=== PATIENT | female | born 1990 | race African-American/Black ===

== ENCOUNTER 2020-08-20 08:49 | Outpatient (REF) | payer OTHER, SELFPAY ==
[2020-08-20 09:39] LABS: MANUAL DIFF FLAG NO
[2020-08-20 09:43] LABS: Basophils Percent Auto 0.4 % (0-2); Eosinophils Absolute Auto 0.1 X10*3/uL (0.0-0.4); Eosinophils Percent Auto 1.2 % (0-4); Hematocrit 36.3 % (37-47); Hemoglobin 11.9 g/dl (12.0-16.0); Imm Gran Abs Auto 0.02 X10*3/uL (0.00-0.03); Imm Gran Pct Auto 0.3 % (0.0-0.4); Lymphocytes Absolute Auto 2.9 X10*3/uL (1.2-4.9); Lymphocytes Percent Auto 39.2 % (20-40); Mean Corpuscular HGB Conc 32.8 g/dl (31.0-35.0); Mean Corpuscular Hemoglobin 29.9 pg (27.0-33.0); Mean Corpuscular Volume 91.2 fL (80-98); Mean Platelet Volume 9.3 fL (9.4-12.3); Monocytes Absolute Auto 0.4 X10*3/uL (0.1-1.2); Monocytes Percent Auto 5.6 % (2-11); Neutrophils Absolute Auto 3.9 X10*3/uL (2.0-8.3); Neutrophils Percent Auto 53.3 % (45-73); Platelet Count 336 X10*3/uL (160-400); Red Blood Count 3.98 X10*6/uL (4.20-5.50); Red Cell Distribution Width 13.2 % (11.0-16.0); White Blood Count 7.3 X10*3/uL (4.8-10.8)
[2020-08-20 11:21] LABS: TSH reflex Free T4 0.67 mIU/mL (0.32-4.0)
[2020-08-20 11:33] LABS: Alanine Aminotransferase 15 U/L (0-31); Albumin Level 4.1 g/dL (3.5-5.0); Alkaline Phosphatase 76 U/L (39-117); Anion Gap 11 (12-20); Aspartate Amino Transferase 19 U/L (5-31); Bilirubin Total 0.2 mg/dL (0.0-1.0); Blood Urea Nitrogen 17 mg/dL (9-16); Calcium 9.3 mg/dL (8.4-10.2); Carbon Dioxide 26 mmol/L (22-29); Chloride 107 mmol/L (96-108); Cholesterol 172 mg/dL; Estimated Glomerular Filt Rate 54; Glucose Random 97 mg/dL (60-115); HDL Cholesterol 47 mg/dL; LDL Cholesterol Calculated 113 mg/dl; Potassium 4.4 mmol/l (3.3-5.1); Sodium 140 mmol/L (135-145); Total Protein 7.4 g/dL (6.5-8.0); Triglycerides 61 mg/dL
[2020-08-22 15:20] LABS: Anti Nuclear Antibody Screen NEGATIVE (NEGATIVE)
== END 2020-08-20 08:50 | disposition home or self-care (01) ==
LOC: HO.10HDL 08:49
PROVIDERS: PCP Internal Medicine; Visit Provider Internal Medicine
DX: Z76.89 Persons encountering health services in other specified circumstances (principal)
CPT/HCPCS: 36415; 80053; 80061; 84443; 85025; 86038; 86039

== ENCOUNTER 2020-10-19 08:33 | Outpatient (REF) | payer OTHER, SELFPAY ==
[2020-10-19 09:18] LABS: COVID-19 Test Negative (Negative)
== END 2020-10-19 08:34 | disposition home or self-care (01) ==
LOC: HO.EMPCOV 08:33
PROVIDERS: Visit Provider Internal Medicine
DX: Z20.828 Contact with and (suspected) exposure to other viral communicable diseases (principal)
CPT/HCPCS: 87635; C9803

== ENCOUNTER 2020-10-22 14:55 | Outpatient (REF) | payer OTHER, SELFPAY ==
--- NOTE | 2020-10-22 | MR_ITS ---
EXAMINATION: MR BRAIN WITHOUT CONTRAST CLINICAL INFORMATION: Papilledema. COMPARISON: None. TECHNIQUE: Multiplanar, multisequence imaging of the brain was performed without contrast. FINDINGS: No diffusion abnormalities are identified to suggest an acute infarct. The ventricles are normal in size. No mass effect or midline shift is seen. No brain parenchymal signal abnormality is noted. No extra-axial fluid collections are seen. The brainstem and cerebellum are normal. There is protrusion of the optic nerve papilla at the level of the optic discs bilaterally into the vitreous space of the globes. The gradient refocused acquisition demonstrates no pathologic magnetic susceptibility artifact to indicate underlying acute or chronic blood products. The craniovertebral junction, marrow signal, and midline structures are normal. The major intracranial flow voids at the level of the [place] are preserved. The dural venous sinus flow voids are maintained. The mastoid air cells and paranasal sinuses are well aerated. MR/MR head/brain wo con IMPRESSION: Protrusion of the optic nerve heads into the vitreous space of the globes bilaterally, consistent with papilledema. No acute intracranial process otherwise.
== END 2020-10-22 14:56 | disposition home or self-care (01) ==
LOC: HO.MRI 14:55
PROVIDERS: PCP Internal Medicine; Visit Provider Psychiatry & Neurology Neurology
DX: H47.10 Unspecified papilledema (principal)
CPT/HCPCS: 70551

== ENCOUNTER 2020-11-10 08:20 | Outpatient (REF) | payer OTHER, SELFPAY ==
[2020-11-10 10:13] LABS: Prothrombin Time 11.9 SEC (10.8-13.0)
== END 2020-11-10 08:21 | disposition home or self-care (01) ==
LOC: HO.10HDL 08:20
PROVIDERS: Visit Provider Psychiatry & Neurology Neurology
DX: H47.10 Unspecified papilledema (principal)
CPT/HCPCS: 36415; 85610

== ENCOUNTER 2020-11-17 07:27 | Outpatient (REF) | payer OTHER, SELFPAY ==
[2020-11-17] VITALS (9 sets, daily range): BP systolic 118–156; BP diastolic 71–93; PULSE 64–87; RESP 16–20; TEMP 35.9–36.2; O2SAT 97–99; BMI 44.1
--- NOTE | 2020-11-17 | FL_ITS ---
EXAMINATION: XR LUMBAR PUNCTURE CLINICAL INFORMATION: Doppler edema, pseudotumor cerebri. COMPARISON: None TECHNIQUE: Following explaining fluoroscopy-guided lumbar puncture procedure, benefits and risk, a written consent was obtained. Patient was placed prone on fluoroscopy table and low back area was cleaned and draped in usual sterile manner. 1% lidocaine was injected puncture site. A 20-gauge 6 inch long needle was then inserted the left left para midline approach intrathecally at the L4-L5 disc level. After observing CSF return, patient was quickly placed in left lateral the courtesy of an opening CSF pressure was obtained. Subsequently 8 mL of CSF fluid was collected in 4 test tubes and sent to lab. The site is a introducer needle removed. Complete hemostasis achieved at puncture site. Sterile dressing applied postprocedure. Patient tolerated procedure well. FINDINGS: On several images obtained of lumbar spine is maintained lumbar lordosis. The vertebral heights, alignment and disc heights are normal. No visible acute fracture bony abnormality seen. Opening CSF pressure measured 43 cm/H2O. Approximately 8 mL of clear CSF fluid collected in 4 test tubes and sent to lab as per requesting physician's orders. FLUOROSCOPY TIME: 0.5 minutes DOSE AREA PRODUCT: 13.897 uGy-m2 (microgray-meter squared) IMAGES: 4 FL/FL guided lumbar puncture LP IMPRESSION: Successful fluoroscopy-guided lumbar puncture performed with opening CSF pressure of 44 cm/water.
[2020-11-17 13:48] LABS: CSF Appearance Clear, Colorless; Glucose CSF 64 mg/dL; Total Protein CSF 40.2 mg/dL (15-45)
[2020-11-17 13:49] LABS: CSF Tube # 1
[2020-11-17 14:25] LABS: Appearance CSF CLEAR; CSF Tube # 4; Color CSF COLORLESS; Red Blood Cell CSF 0 MM*3; White Blood Cell CSF 1 MM*3
[2020-11-17 14:26] LABS: CSF Monos 29 %; Lymphocytes CSF 71 %
[2020-11-20 08:56] LABS: Oligoclonal Serum Yes
[2020-11-25 01:11] LABS: Albumin 3.7 g/dL (3.5-5.2); Albumin, CSF 22.9 mg/dL (8.0-42.0); IgG 1580 mg/dL (600-1640); IgG Synthesis Rate -5.7 mg/24 h (-9.9-3.3); IgG, CSF 4.4 mg/dL (0.8-7.7)
== END 2020-11-17 07:28 | disposition home or self-care (01) ==
LOC: HO.MS 07:27
PROVIDERS: PCP Internal Medicine; Visit Provider Psychiatry & Neurology Neurology
PROC: 009U3ZZ Drainage of Spinal Canal, Percutaneous Approach (ICD-10-PCS; CPT 62270; principal; 2020-11-17 08:00)
DX: G93.2 Benign intracranial hypertension (principal); H47.10 Unspecified papilledema; E66.9 Obesity, unspecified
CPT/HCPCS: 62328; 82042; 82945; 83916; 84157; 87015; 87070; 87205; 89051

== ENCOUNTER 2021-01-31 07:52 | Outpatient (REF) | payer OTHER, SELFPAY ==
[2021-01-31 08:37] LABS: COVID-19 Test Negative (Negative); IDNOW Serial# 55D5AD1C
== END 2021-01-31 07:53 | disposition home or self-care (01) ==
LOC: HO.EMPCOV 07:52
PROVIDERS: Visit Provider Internal Medicine
DX: Z20.822 Contact with and (suspected) exposure to COVID-19 (principal)
CPT/HCPCS: 36415; 87635; C9803

== ENCOUNTER → 2021-02-08 12:39 | Outpatient (BNVA) | payer OTHER, SELFPAY | PROVIDERS: PCP Internal Medicine; Visit Provider Internal Medicine | DX: Z13.89 Encounter for screening for other disorder (principal) | CPT/HCPCS: 99203 ==

== ENCOUNTER → 2021-02-11 08:48 | Outpatient (BNVA) | payer OTHER, SELFPAY | PROVIDERS: PCP Internal Medicine; Visit Provider Physician Assistant Medical | DX: Z13.89 Encounter for screening for other disorder (principal) | CPT/HCPCS: 99213 ==

== ENCOUNTER 2021-03-02 13:43 | Outpatient (REF) | payer OTHER, SELFPAY | END 2021-03-02 13:44 | disposition home or self-care (01) | LOC: HO.LNP 13:43 | PROVIDERS: Visit Provider Physician Assistant | DX: Z20.822 Contact with and (suspected) exposure to COVID-19 (principal) | CPT/HCPCS: U0003; U0005 ==

== ENCOUNTER 2024-04-08 12:53 | Outpatient (AMB) | payer OTHER, SELFPAY ==
--- NOTE | 2024-04-08 12:56 | A.OFFPC_ITS ---
Vital Signs 04/08/24 12:57 Height 5 ft 8 in Weight 313 lb BMI 47.6 BP 140/110 H Blood Pressure Location Rt brachial Position Sitting Pulse 82 Pulse Source Pulse Oximeter Pulse Oximetry (%) 98 Oxygen Delivery Method Room Air Intake Visit Reasons: High BP Allergies No Known Allergies [No Known Allergies*] Allergy (Verified 04/08/24 12:57) Medication List - Last Reconciled 04/08/24 by Gregg Keller MD No Known Home Meds Tobacco use date assessed: 04/08/24 Dental Screening Dental Screen Date: 04/08/24 Did you have a dental visit in the last 12 months?: Yes Did you have a dental problem in the last 6 months where you did not have access to dental care?: No Was dental information given to patient?: Patient has dentist HPI High BP HPI Details Patient is a 34-year-old female came today establish care visit Patient says that her blood pressure has been running high She was in urgent care few days ago and it was 184 systolic Today it is 140/110 Patient has never taken any medication I see that she was seen in 2020 and her blood pressure was 138/72 at that time I am starting her on hydrochlorothiazide 25 mg once a day Patient is also complaining of feeling fatigue and tired all day She says that she sleeps 8 hours a day and still wake up very tired At times with headache Her BMI is 47.6 patient is morbidly obese I have ordered sleep study for the patient Lab order placed to be done fasting She also have rash on both elbows for that she is using hydrocortisone cream which is helping her. She is to return in 3 weeks for physical exam [facility] Medical History Elevated IOP Surgical History No pertinent past surgical history Social History Housing: House Alcohol intake: current Alcohol intake frequency: a few times a month Patient Tobacco Use Status: Former Tobacco user e-Cigarette/Vaping Use: Never Used Cognitive needs: No Hearing needs: No Vision needs: No Questionnaire PHQ-9 Over the last 2 weeks, how often have you been bothered by any of the following problems? 1. Little interest or pleasure in doing things: several days 2. Feeling down, depressed, or hopeless: several days 3. Trouble falling or staying asleep, or sleeping too much: more than half the days 4. Feeling tired or having little energy: nearly every day 5. Poor appetite or overeating: more than half the days 6. Feeling bad about yourself - or that you are a failure or have let yourself or your family down: not at all 7. Trouble concentrating on things, such as reading the newspaper or watching television: not at all 8. Moving or speaking so slowly that other people could have noticed. Or the opposite - being so fidgety or restless that you have been moving around a lot more than usual: not at all 9. Thoughts that you would be better off or of hurting yourself in some way: not at all Total score: 9 Depression Screening Interpretation: Negative Depression Screening Done: Yes 00393 - PHQ-9 Billing: Yes Source: Developed by Drs. Nima Alexander, Esther Yanes, Kulwant Avendano and colleagues, with an educational shayy from [employer]. Thrive Questionnaire Date Thrive assessed: 04/08/24 I am a: Patient What is your living situation today?: I have a steady place to live Within the past 12 months, did the food you bought not last and you didn't have the money to get more?: Never true Within the past 12 months, did you worry whether your food would run out before you got money to buy more?: Never true Do you have trouble paying for medicines?: No Do you have trouble getting transportation to medical appointments?: No Do you have trouble paying your heating and electricity bill?: No Do you have trouble taking care of your child, family member or friend?: No Do you have trouble with day-to-day activities such as bathing, preparing meals, shopping, managing finances, etc.?: No Are you currently unemployed and looking for a job?: No Are you interested in more education?: No Please select the resources that you would like help with: None Currently or been in a relationship where the following occur: no concerns reported THRIVE Score: 0 AUDIT C Alcohol Use Questionnaire (AUDIT-C) 1. How often do you have a drink containing alcohol?: 2-3 times a week 2. How many drinks containing alcohol do you have on a typical day when you are drinking?: 1 or 2 3. How often do you have six or more drinks on one occasion?: Never Total Score: 3 Score Reviewed/Action Taken: No ELPIDIO-7 AMB Questionnaire ELPIDIO-7 Date ELPIDIO - 7 assessed: 04/08/24 Feeling nervous, anxious, or on edge: 2 = More than half the days Not being able to stop or control worryin = Not at all Worrying too much about different things: 0 = Not at all Trouble relaxin = Not at all Being so restless that it is hard to sit still: 1 = Several days Becoming easily annoyed or irritable: 3 = Nearly every day Feeling afraid as if something awful might happen: 0 = Not at all Total ELPIDIO-7 score (0-4 normal; 5-9 mild; 10-14 moderate; 15-21 severe): 6 Source: Developed by Drs. Nima Alexander, Esther Yanes, Kulwant Avendano and colleagues, with an educational shayy from [employer]. ELPIDIO-7 Assessment Billing ELPIDIO-7 Assessment Tool: ELPIDIO-7 Assessment 72875 Review of Systems Const Denies chills and Denies fever(s) ENT Denies epistaxis and Denies nasal discharge Card Denies chest pain Resp Denies chest congestion, Denies cough and Denies hemoptysis GI Denies diarrhea and Denies nausea Skin/Breast Denies rash Neuro Reports no additional complaints Psych Reports no additional complaints Endo Reports no additional complaints Physical exam (Primary Care) Vital Signs: Last Vital Signs Pulse 82 04/08/24 12:57 BP 140/110 H 04/08/24 12:57 Pulse Ox 98 04/08/24 12:57 Oxygen Delivery Method Room Air 04/08/24 12:57 BMI result Body Mass Index 47.6 Tobacco/Smoking Status: Tobacco use Status Tobacco use date assessed 04/08/24 04/08/24 13:01 Patient Tobacco Use Status Former Tobacco user 04/08/24 13:01 e-Cigarette/Vaping Use Never Used 04/08/24 13:01 PHQ-9: PHQ-9 Score PHQ-9: Total score 9 04/08/24 13:29 Depression Screening Interpretation: Negative Thrive Assessment: Date of Thrive Assessment Date Thrive assessed 04/08/24 04/08/24 13:29 Currently or been in a relationship where the following occur: no concerns reported Const General: cooperative, comfortable and no acute distress Orientation/consciousness: patient oriented x3 HENMT Head: Yes normocephalic Eyes General: appearance normal, both eyes and all related structures Neck Neck: Yes supple Resp Effort & Inspection: normal respiratory effort, no cough and no stridor Cardio Rhythm: regular rhythm Heart sounds: S1 normal heart sound present and S2 normal heart sound present Skin General skin exam: turgor normal Neuro General: patient oriented x3, tone normal and moves all extremities Extrem Right lower extremity: no edema Left lower extremity: no edema Assessment and Plan Assessment & Plan (1) Establishing care with new doctor, encounter for: Code(s): Z76.89 - Persons encountering health services in other specified circumstances (2) Tired: Code(s): R53.83 - Other fatigue (3) Morbid obesity due to excess calories: Code(s): E66.01 - Morbid (severe) obesity due to excess calories (4) Rash: Code(s): R21 - Rash and other nonspecific skin eruption (5) Daytime somnolence: Code(s): R40.0 - Somnolence (6) Snoring: Code(s): R06.83 - Snoring (7) Morning headache: Code(s): R51.9 - Headache, unspecified (8) Encounter for general adult medical examination with abnormal findings: Code(s): Z00.01 - Encounter for general adult medical examination with abnormal findings Plan Patient is a 34-year-old female came today establish care visit Patient says that her blood pressure has been running high She was in urgent care few days ago and it was 184 systolic Today it is 140/110 Patient has never taken any medication I see that she was seen in 2020 and her blood pressure was 138/72 at that time I am starting her on hydrochlorothiazide 25 mg once a day Patient is also complaining of feeling fatigue and tired all day She says that she sleeps 8 hours a day and still wake up very tired At times with headache Her BMI is 47.6 patient is morbidly obese I have ordered sleep study for the patient Lab order placed to be done fasting She also have rash on both elbows for that she is using hydrocortisone cream which is helping her. She is to return in 3 weeks for physical exam Orders: Orders Complete Blood Count Auto Diff Today E66.01 - Morbid (severe) obesity due to excess calories, R06.83 - Snoring, R21 - Rash and other nonspecific skin eruption, R40.0 - Somnolence, R53.83 - Other fatigue, Z00.01 - Encounter for general adult medical examination with abnormal findings, Z76.89 - Persons encountering health services in other specified circumstances Comprehensive [place]. Panel Fast Today E66.01 - Morbid (severe) obesity due to excess calories, R06.83 - Snoring, R21 - Rash and other nonspecific skin eruption, R40.0 - Somnolence, R53.83 - Other fatigue, Z00.01 - Encounter for general adult medical examination with abnormal findings, Z76.89 - Persons encountering health services in other specified circumstances TSH reflex Free T4 Today E66.01 - Morbid (severe) obesity due to excess calories, R06.83 - Snoring, R21 - Rash and other nonspecific skin eruption, R40.0 - Somnolence, R53.83 - Other fatigue, Z00.01 - Encounter for general adult medical examination with abnormal findings, Z76.89 - Persons encountering health services in other specified circumstances UA CC w/rflx Micro + Cult Today E66.01 - Morbid (severe) obesity due to excess calories, R06.83 - Snoring, R21 - Rash and other nonspecific skin eruption, R40.0 - Somnolence, R53.83 - Other fatigue, Z00.01 - Encounter for general adult medical examination with abnormal findings, Z76.89 - Persons encountering health services in other specified circumstances RT home sleep study Today E66.01 - Morbid (severe) obesity due to excess calories, R06.83 - Snoring, R40.0 - Somnolence Lipid Panel Today E66.01 - Morbid (severe) obesity due to excess calories, R06.83 - Snoring, R21 - Rash and other nonspecific skin eruption, R40.0 - Somnolence, R53.83 - Other fatigue, Z00.01 - Encounter for general adult medical examination with abnormal findings, Z76.89 - Persons encountering health services in other specified circumstances Vitamin D 25-OH (D2 and D3) Today E66.01 - Morbid (severe) obesity due to excess calories, R06.83 - Snoring, R21 - Rash and other nonspecific skin eruption, R40.0 - Somnolence, R53.83 - Other fatigue, Z00.01 - Encounter for general adult medical examination with abnormal findings, Z76.89 - Persons encountering health services in other specified circumstances Hemoglobin A1c Today E66.01 - Morbid (severe) obesity due to excess calories, R06.83 - Snoring, R21 - Rash and other nonspecific skin eruption, R40.0 - Somnolence, R53.83 - Other fatigue, Z00.01 - Encounter for general adult medical examination with abnormal findings, Z76.89 - Persons encountering health services in other specified circumstances Medications: New hydrochlorothiazide 25 mg PO QAM 30 tabs 0RF Coding Level of Care Code New Pt Level 4 (38112) Diagnoses Establishing care with new doctor, encounter for Z76.89 Tired R53.83 Morbid obesity due to excess calories E66.01 Rash R21 Daytime somnolence R40.0 Snoring R06.83 Morning headache R51.9 Encounter for general adult medical examination with abnormal findings Z00.01 Additional Codes ELPIDIO-7 Assessment Billing - ELPIDIO-7 Assessment Tool: ELPIDIO-7 Assessment [id number] ([id number])
[2024-04-08 12:57] VITALS: BP 140/110; PULSE 82; O2SAT 98; BMI 47.6
== END 2024-04-08 13:19 | disposition home or self-care (01) ==
PROVIDERS: PCP Internal Medicine; Visit Provider Internal Medicine
DX: R53.83 Other fatigue (principal); R21 Rash and other nonspecific skin eruption; E66.01 Morbid (severe) obesity due to excess calories; Z68.42 Body mass index [BMI] 45.0-49.9, adult; Z76.89 Persons encountering health services in other specified circumstances; R40.0 Somnolence; R06.83 Snoring; R51.9 Headache, unspecified
CPT/HCPCS: 99204

== ENCOUNTER 2024-04-12 09:42 | Outpatient (REF) | payer OTHER, SELFPAY ==
[2024-04-12 11:04] LABS: MANUAL DIFF FLAG NO
[2024-04-12 11:13] LABS: Basophils Percent Auto 0.6 % (0-2); Eosinophils Absolute Auto 0.1 X10*3/uL (0.0-0.4); Eosinophils Percent Auto 1.6 % (0-4); Hematocrit 34.8 % (37.0-47.0); Hemoglobin 11.7 g/dl (12.0-16.0); Imm Gran Abs Auto 0.02 X10*3/uL (0.00-0.03); Imm Gran Pct Auto 0.3 % (0.0-0.4); Lymphocytes Absolute Auto 2.7 X10*3/uL (1.2-4.9); Lymphocytes Percent Auto 38.2 % (20-40); Mean Corpuscular HGB Conc 33.6 g/dl (31.0-35.0); Mean Corpuscular Hemoglobin 29.5 pg (27.0-33.0); Mean Corpuscular Volume 87.9 fL (80.0-98.0); Mean Platelet Volume 9.1 fL (9.4-12.3); Monocytes Absolute Auto 0.4 X10*3/uL (0.1-1.2); Monocytes Percent Auto 6.2 % (2-11); Neutrophils Absolute Auto 3.8 x10*3/uL (2.0-8.3); Neutrophils Percent Auto 53.1 % (45-73); Platelet Count 369 X10*3/uL (160-400); Red Blood Count 3.96 X10*6/uL (4.20-5.50); White Blood Count 7.1 X10*3/uL (4.8-10.8)
[2024-04-12 11:26] LABS: Appearance Urine Cloudy; Glucose Urine UA Negative (Negative); Leukocyte Esterase Urine Negative (Negative); Nitrite Urine Negative (Negative); UMIC TRIGGER UACC YES; Urine Blood Large (3+) (Negative); Urine Ketones Negative (Negative); Urine Protein 100 (2+) mg/dL (Neg-Trace)
[2024-04-12 11:27] LABS: Color Urine RED
[2024-04-12 11:32] LABS: Estimated Average Glucose 117 mg/dL; Hemoglobin A1c % 5.7 % (<6.0)
[2024-04-12 11:32] LABS: Bacteria Urine None Seen (None Seen); Hyaline Casts Urine 0-2 /LPF (0-2); RBC Urine >20 /HPF (0-2); Squamous Epithelial Cell Urine 0-2 /HPF (0-2); WBC Urine 0-5 /HPF (0-5)
[2024-04-12 12:07] LABS: Alanine Aminotransferase 12 U/L (0-31); Albumin Level 3.8 g/dL (3.5-5.0); Alkaline Phosphatase 70 U/L (39-117); Anion Gap 10 (12-20); Aspartate Amino Transferase 18 U/L (5-31); Bilirubin Total 0.2 mg/dL (0.0-1.0); Blood Urea Nitrogen 12 mg/dL (9-16); Carbon Dioxide 27 mmol/L (22-29); Chloride 107 mmol/L (96-108); Cholesterol 174 mg/dL (<200); Estimated Glomerular Filt Rate > 60; Glucose Fasting 95 mg/dL (60-99); HDL Cholesterol 47 mg/dL (>40); LDL Cholesterol Calculated 113 mg/dL (<100); Potassium 3.9 mmol/L (3.3-5.1); Sodium 140 mmol/L (135-145); Total Protein 7.4 g/dL (6.5-8.0); Triglycerides 74 mg/dL (<150)
[2024-04-12 12:23] LABS: TSH reflex Free T4 0.73 uIU/mL (0.32-4.0)
[2024-04-17 12:29] LABS: Vitamin D 25-OH, D2 <4 ng/mL; Vitamin D 25-OH, D3 13 ng/mL; Vitamin D 25-OH, Total 13 ng/mL (30-100)
== END 2024-04-12 09:43 | disposition home or self-care (01) ==
LOC: HO.HMGCLDS 09:42
PROVIDERS: PCP Internal Medicine; Visit Provider Internal Medicine
DX: Z00.01 Encounter for general adult medical examination with abnormal findings (principal); E66.01 Morbid (severe) obesity due to excess calories; R21 Rash and other nonspecific skin eruption; R40.0 Somnolence; R53.83 Other fatigue; R06.83 Snoring; Z76.89 Persons encountering health services in other specified circumstances
CPT/HCPCS: 36415; 80053; 80061; 81001; 82306; 83036; 84443; 85025

== ENCOUNTER 2024-05-02 14:42 | Outpatient (AMB) | payer OTHER, SELFPAY ==
--- NOTE | 2024-05-02 14:46 | MHC.PC.OV ---
Vital Signs 05/02/24 14:48 Height 5 ft 8 in Weight 314 lb BMI 47.7 BP 160/100 H Blood Pressure Location Rt brachial Position Sitting Pulse 82 Pulse Source Pulse Oximeter Pulse Oximetry (%) 99 Oxygen Delivery Method Room Air Intake Visit Reasons: Annual PE ok per [place] Allergies No Known Allergies [No Known Allergies*] Allergy (Verified 05/02/24 14:48) Medication List - Last Reconciled 05/02/24 by Gregg Keller MD hydrochlorothiazide 25 mg PO QAM Tobacco use date assessed: 04/08/24 Dental Screening Dental Screen Date: 04/08/24 HPI Annual PE ok per [place] HPI Details Patient is 34-year-old female came in today for physical examination Last time she was seen 3 weeks ago she was given a script for hydrochlorothiazide for elevated blood pressure Patient says that the pharmacy never got it so she never took it I have sent it again her blood pressure is 1 60 x 100 Patient was instructed to call me if she could not pick up attendant the script for some reason Labs done recently reviewed with the patient Vitamin-D level is low I have sent supplement He is slightly anemic but she was also slightly anemic in 2019, hemoglobin is stable Fasting sugar is 95 Patient have appointment with OBGYN next month at [place] She is morbidly obese with BMI of 47.7, she is requesting a script frog Wegovy to be started Which I have sent for her, patient knows how to give injections. She will return in 4 weeks for follow-up on high blood pressure and Wegovy [facility] Medical History Elevated IOP Surgical History No pertinent past surgical history Social History Housing: House Alcohol intake: current Alcohol intake frequency: a few times a month Patient Tobacco Use Status: Former Tobacco user e-Cigarette/Vaping Use: Never Used Cognitive needs: No Hearing needs: No Vision needs: No Questionnaire Thrive Questionnaire Date Thrive assessed: 04/08/24 ELPIDIO-7 AMB Questionnaire ELPIDIO-7 Date ELPIDIO - 7 assessed: 04/08/24 Source: Developed by Drs. Nima Alexander, Esther BKulwant Vigil and colleagues, with an educational shayy from [employer]. Review of Systems Const Denies chills, Denies fever(s) and Denies headache(s) Eyes Denies blurry vision ENT Denies headache(s), Denies nasal discharge, Denies nasal obstruction, Denies odynophagia and Denies sinus pain Card Denies chest pain at rest and Denies chest pain with activity Resp Denies cough and Denies hemoptysis GI Denies diarrhea, Denies odynophagia, Denies vomiting and Denies hematemesis Reports as per HPI Musc Denies abnormal gait Skin/Breast Reports as per HPI Neuro Denies Neuro-related abnormal movements, Denies Abnormal speech present, Denies abnormal gait, Denies headache(s) and Denies Sensory deficit (Neuro) Psych Denies mood swings and Denies paranoia Endo Reports as per HPI Compa/Lymph Reports as per HPI Aller/Immun Reports as per HPI Physical exam (Primary Care) Vital Signs: Last Vital Signs Pulse 82 05/02/24 14:48 BP 160/100 H 05/02/24 14:48 Pulse Ox 99 05/02/24 14:48 Oxygen Delivery Method Room Air 05/02/24 14:48 BMI result Body Mass Index 47.7 Tobacco/Smoking Status: Tobacco use Status Tobacco use date assessed 04/08/24 05/02/24 14:49 Patient Tobacco Use Status Former Tobacco user 05/02/24 14:49 e-Cigarette/Vaping Use Never Used 05/02/24 14:49 Thrive Assessment: Date of Thrive Assessment Date Thrive assessed 04/08/24 05/02/24 14:49 Const General: cooperative, comfortable and no acute distress Orientation/consciousness: patient oriented x3 HENMT Head: Yes normocephalic and Yes atraumatic Eyes General: appearance normal, both eyes and all related structures Pupils: Equal, round and reactive pupils present EOM: EOMs intact bilaterally Neck Neck: Yes supple and No lymphadenopathy Thyroid: Thyroid normal Lymphatic: no lymphadenopathy noted Resp Effort & Inspection: normal respiratory effort and able to speak in complete sentences Auscultation: clear to auscultation bilaterally Cardio Heart sounds: S1 normal heart sound present and S2 normal heart sound present GI Palpation (GI): Soft to palpation and nontender Auscultation: normal bowel sounds General: Yes no CVA tenderness Back/Spine/Pelvis Back: no CVA tenderness Skin General skin exam: elasticity normal and turgor normal Neuro General: patient oriented x3 and gait normal Cranial nerves: Yes Equal, round and reactive pupils present Speech: No Abnormal speech present Sensory Exam: No Sensory deficit (Neuro) Coordination: tandem gait normal and Romberg test negative Extrem General: Yes normal exam except as noted and No edema Assessment and Plan Assessment & Plan (1) Encounter for general adult medical examination with abnormal findings: Code(s): Z00.01 - Encounter for general adult medical examination with abnormal findings (2) Morbid obesity due to excess calories: Code(s): E66.01 - Morbid (severe) obesity due to excess calories (3) Hypertension, essential: Code(s): I10 - Essential (primary) hypertension (4) Vitamin D deficiency: Code(s): E55.9 - Vitamin D deficiency, unspecified (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): Code(s): D50.0 - Iron deficiency anemia secondary to blood loss (chronic) Plan Patient is 34-year-old female came in today for physical examination Last time she was seen 3 weeks ago she was given a script for hydrochlorothiazide for elevated blood pressure Patient says that the pharmacy never got it so she never took it I have sent it again her blood pressure is 1 60 x 100 Patient was instructed to call me if she could not pick up attendant the script for some reason Labs done recently reviewed with the patient Vitamin-D level is low I have sent supplement He is slightly anemic but she was also slightly anemic in 2019, hemoglobin is stable Fasting sugar is 95 Patient have appointment with [facility] next month at [place] She is morbidly obese with BMI of 47.7, she is requesting a script frog Wegovy to be started Which I have sent for her, patient knows how to give injections. She will return in 4 weeks for follow-up on high blood pressure and Wegovy Medications: New Wegovy (semaglutide (weight loss)) administer weeks 1 through 4 of therapy 0.25 mg (0.5 mL) subcut QWEEK 2 mL 0RF NS E66.01 - Morbid (severe) obesity due to excess calories, I10 - Essential (primary) hypertension cholecalciferol (vitamin D3) 25 mcg PO DAILY 90 days 90 caps 1RF Refilled hydrochlorothiazide 25 mg PO QAM 30 tabs 0RF Coding Level of Care Code Est Pt Level 4 (03328) Est Pt Prev Care 18-39y([id number]) Diagnoses Encounter for general adult medical examination with abnormal findings Z00.01 Morbid obesity due to excess calories E66.01 Hypertension, essential I10 Vitamin D deficiency E55.9 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
[2024-05-02 14:48] VITALS: BP 160/100; PULSE 82; O2SAT 99; BMI 47.7
== END 2024-05-02 15:22 | disposition home or self-care (01) ==
PROVIDERS: PCP Internal Medicine; Visit Provider Internal Medicine
DX: Z00.01 Encounter for general adult medical examination with abnormal findings (principal); E66.01 Morbid (severe) obesity due to excess calories; Z68.42 Body mass index [BMI] 45.0-49.9, adult; D50.0 Iron deficiency anemia secondary to blood loss (chronic); I10 Essential (primary) hypertension; E55.9 Vitamin D deficiency, unspecified
CPT/HCPCS: 99214; 99395

== ENCOUNTER → 2024-05-14 07:53 | Outpatient (REF) | payer OTHER, SELFPAY | LOC: HO.SL 07:53 | PROVIDERS: PCP Internal Medicine; Visit Provider Internal Medicine | DX: R06.83 Snoring (principal); R40.0 Somnolence; E66.01 Morbid (severe) obesity due to excess calories | CPT/HCPCS: 95806 ==

== ENCOUNTER → 2024-05-14 08:03 | Outpatient (BNV) | payer OTHER, SELFPAY | PROVIDERS: PCP Internal Medicine; Visit Provider Internal Medicine | DX: R06.83 Snoring (principal); R40.0 Somnolence | CPT/HCPCS: 95806 ==

== ENCOUNTER 2024-07-04 10:32 | Outpatient (AMB) | payer OTHER, SELFPAY ==
[2024-07-04 10:36] VITALS: BP 158/102; PULSE 78; O2SAT 96; BMI 46.8
--- NOTE | 2024-07-04 10:36 | MHC.PC.OV ---
Vital Signs 07/04/24 10:36 Height 5 ft 8 in Weight 307 lb 8 oz BMI 46.8 BP 158/102 H Blood Pressure Location Rt brachial Position Sitting Pulse 78 Pulse Source Pulse Oximeter Pulse Oximetry (%) 96 Oxygen Delivery Method Room Air Intake Visit Reasons: BloodPresureF/U Allergies No Known Allergies [No Known Allergies*] Allergy (Verified 07/04/24 10:38) Medication List - Last Reconciled 07/04/24 by Gregg Keller MD cholecalciferol (vitamin D3) 25 mcg PO DAILY 90 days Wegovy (semaglutide (weight loss)) 0.25 mg (0.5 mL) subcut QWEEK NS Tobacco use date assessed: 07/04/24 Dental Screening Dental Screen Date: 07/04/24 Did you have a dental visit in the last 12 months?: Yes Did you have a dental problem in the last 6 months where you did not have access to dental care?: No Was dental information given to patient?: Patient has dentist HPI BloodPresureF/U HPI Details Patient is a 34-year-old female came in today for follow up on blood pressure and weight Patient was started on hydrochlorothiazide 25 mg for elevated blood pressure Her blood pressure is still 158/102 She was also started on Wegovy as a weight loss by year She has been able to lose weight She was 314 lb May 02 and she is 307 lb and 8 oz today Patient is tolerating injections no side effects I am changing her blood pressure medication to lisinopril 20 mg hydrochlorothiazide 25 mg Script sent I will also sent script for blood pressure monitor, patient need to start monitoring blood pressure at home and bring a log along in 4 weeks [facility] Medical History Elevated IOP Surgical History No pertinent past surgical history Social History Housing: House Alcohol intake: current Alcohol intake frequency: a few times a month Patient Tobacco Use Status: Former Tobacco user e-Cigarette/Vaping Use: Never Used Cognitive needs: No Hearing needs: No Vision needs: No Questionnaire Thrive Questionnaire Date Thrive assessed: 04/08/24 AUDIT C Alcohol Use Questionnaire (AUDIT-C) 1. How often do you have a drink containing alcohol?: 2-3 times a week 2. How many drinks containing alcohol do you have on a typical day when you are drinking?: 1 or 2 3. How often do you have six or more drinks on one occasion?: Never Total Score: 3 Score Reviewed/Action Taken: Yes ELPIDIO-7 AMB Questionnaire ELPIDIO-7 Date ELPIDIO - 7 assessed: 04/08/24 Source: Developed by Drs. Nima Alexander, Esther Yanes, Kulwant Avendano and colleagues, with an educational shayy from [employer]. Review of Systems Const Denies chills and Denies fever(s) ENT Denies epistaxis and Denies nasal discharge Card Denies chest pain Resp Denies chest congestion, Denies cough and Denies hemoptysis GI Denies diarrhea and Denies nausea Neuro Reports no additional complaints Psych Reports no additional complaints Endo Reports no additional complaints Physical exam (Primary Care) Vital Signs: Last Vital Signs Pulse 78 07/04/24 10:36 BP 158/102 H 07/04/24 10:36 Pulse Ox 96 07/04/24 10:36 Oxygen Delivery Method Room Air 07/04/24 10:36 BMI result Body Mass Index 46.8 Tobacco/Smoking Status: Tobacco use Status Tobacco use date assessed 07/04/24 07/04/24 10:39 Patient Tobacco Use Status Former Tobacco user 07/04/24 10:39 e-Cigarette/Vaping Use Never Used 07/04/24 10:39 Thrive Assessment: Date of Thrive Assessment Date Thrive assessed 04/08/24 07/04/24 10:39 Const General: cooperative, comfortable and no acute distress Orientation/consciousness: patient oriented x3 HENMT Head: Yes normocephalic Eyes General: appearance normal, both eyes and all related structures Neck Neck: Yes supple Resp Effort & Inspection: normal respiratory effort, no cough and no stridor Cardio Rhythm: regular rhythm Heart sounds: S1 normal heart sound present and S2 normal heart sound present Skin General skin exam: turgor normal Neuro General: patient oriented x3, tone normal and moves all extremities Extrem Right lower extremity: no edema Left lower extremity: no edema Assessment and Plan Assessment & Plan (1) Hypertension, essential: Code(s): I10 - Essential (primary) hypertension (2) Morbid obesity due to excess calories: Code(s): E66.01 - Morbid (severe) obesity due to excess calories (3) Tinea corporis: Code(s): B35.4 - Tinea corporis Plan Patient is a 34-year-old female came in today for follow up on blood pressure and weight Patient was started on hydrochlorothiazide 25 mg for elevated blood pressure Her blood pressure is still 158/102 She was also started on Wegovy as a weight loss by year She has been able to lose weight She was 314 lb May 02 and she is 307 lb and 8 oz today Patient is tolerating injections no side effects I am changing her blood pressure medication to lisinopril 20 mg hydrochlorothiazide 25 mg Script sent I will also sent script for blood pressure monitor, patient need to start monitoring blood pressure at home and bring a log along in 4 weeks Patient has developed fungal rash groin area she is requesting treatment for that, nystatin cream sent Medications: New [Blood pressure monitor] As directed 1 ea 0RF I10 - Essential (primary) hypertension nystatin 1 appl topical DAILY 30 days 30 grams 1RF lisinopril-hydrochlorothiazide 20-25 mg 1 tab PO DAILY 30 tabs 0RF Coding Level of Care Code Est Pt Level 3 (01753) Diagnoses Hypertension, essential I10 Morbid obesity due to excess calories E66.01 Tinea corporis B35.4
== END 2024-07-04 10:51 | disposition home or self-care (01) ==
PROVIDERS: PCP Internal Medicine; Visit Provider Internal Medicine
DX: I10 Essential (primary) hypertension (principal); E66.01 Morbid (severe) obesity due to excess calories; Z68.42 Body mass index [BMI] 45.0-49.9, adult; B35.4 Tinea corporis
CPT/HCPCS: 99213

== ENCOUNTER 2024-08-19 13:36 | Outpatient (AMB) | payer OTHER, SELFPAY ==
[2024-08-19 13:39] VITALS: BP 130/80; PULSE 82; O2SAT 98; BMI 45.9
--- NOTE | 2024-08-19 13:39 | MHC.PC.OV ---
Vital Signs 08/19/24 13:39 Height 5 ft 8 in Weight 302 lb BMI 45.9 BP 130/80 Blood Pressure Location Rt brachial Position Sitting Pulse 82 Pulse Source Pulse Oximeter Pulse Oximetry (%) 98 Intake Visit Reasons: 4 week f/u Allergies No Known Allergies [No Known Allergies*] Allergy (Verified 08/19/24 13:39) Medication List - Last Reconciled 08/19/24 by Gregg Keller MD [Blood pressure monitor As directed] cholecalciferol (vitamin D3) 25 mcg PO DAILY 90 days lisinopril-hydrochlorothiazide 20-25 mg 1 tab PO DAILY nystatin 1 appl topical DAILY 30 days Wegovy (semaglutide (weight loss)) 0.25 mg (0.5 mL) subcut QWEEK NS Tobacco use date assessed: 07/04/24 Dental Screening Dental Screen Date: 07/04/24 HPI 4 week f/u HPI Details Patient is 34-year-old female came in today for follow-up appointment Patient is on low-dose Wegovy for weight loss She is tolerating medication I am increasing the dose to 0.5 mg Sleep study came back normal however it is recommended that patient see ENT because of snoring Patient says that as she will lose weight she feels that her snoring we will get better. Blood pressure is better now with lisinopril hydrochlorothiazide Patient is tolerating medication no side effects Lab order placed Patient is to return in 3 months for follow-up appointment [facility] Medical History Elevated IOP Surgical History No pertinent past surgical history Social History Housing: House Alcohol intake: current Alcohol intake frequency: a few times a month Patient Tobacco Use Status: Former Tobacco user e-Cigarette/Vaping Use: Never Used Cognitive needs: No Hearing needs: No Vision needs: No Questionnaire Thrive Questionnaire Date Thrive assessed: 04/08/24 I am a: Patient What is your living situation today?: I choose not to answer this question Within the past 12 months, did the food you bought not last and you didn't have the money to get more?: I choose not to answer this question Within the past 12 months, did you worry whether your food would run out before you got money to buy more?: I choose not to answer this question Do you have trouble paying for medicines?: I choose not to answer this question Do you have trouble getting transportation to medical appointments?: I choose not to answer this question Do you have trouble paying your heating and electricity bill?: I choose not to answer this question Do you have trouble taking care of your child, family member or friend?: I choose not to answer this question Do you have trouble with day-to-day activities such as bathing, preparing meals, shopping, managing finances, etc.?: I choose not to answer this question Are you interested in more education?: I choose not to answer this question Please select the resources that you would like help with: None Currently or been in a relationship where the following occur: I choose not to answer THRIVE Score: 0 AUDIT C Alcohol Use Questionnaire (AUDIT-C) 1. How often do you have a drink containing alcohol?: Never Total Score: 0 ELPIDIO-7 AMB Questionnaire ELPIDIO-7 Date ELPIDIO - 7 assessed: 04/08/24 Feeling nervous, anxious, or on edge: 3 = Nearly every day Not being able to stop or control worryin = Not at all Worrying too much about different things: 0 = Not at all Trouble relaxin = Not at all Being so restless that it is hard to sit still: 0 = Not at all Becoming easily annoyed or irritable: 0 = Not at all Feeling afraid as if something awful might happen: 0 = Not at all Total ELPIDIO-7 score (0-4 normal; 5-9 mild; 10-14 moderate; 15-21 severe): 3 Source: Developed by Drs. Nima Alexander, Esther Yanes, Kulwant Avendano and colleagues, with an educational shayy from [employer]. Review of Systems Const Denies chills and Denies fever(s) ENT Denies epistaxis and Denies nasal discharge Card Denies chest pain Resp Denies chest congestion, Denies cough and Denies hemoptysis GI Denies diarrhea and Denies nausea Skin/Breast Denies rash Neuro Reports no additional complaints Psych Reports no additional complaints Endo Reports no additional complaints Physical exam (Primary Care) Vital Signs: Last Vital Signs Pulse 82 08/19/24 13:39 BP 130/80 08/19/24 13:39 Pulse Ox 98 08/19/24 13:39 BMI result Body Mass Index 45.9 Tobacco/Smoking Status: Tobacco use Status Tobacco use date assessed 07/04/24 08/19/24 13:39 Patient Tobacco Use Status Former Tobacco user 08/19/24 13:39 e-Cigarette/Vaping Use Never Used 08/19/24 13:39 Thrive Assessment: Date of Thrive Assessment Date Thrive assessed 04/08/24 08/19/24 13:39 Currently or been in a relationship where the following occur: I choose not to answer Const General: cooperative, comfortable and no acute distress Orientation/consciousness: patient oriented x3 HENMT Head: Yes normocephalic Eyes General: appearance normal, both eyes and all related structures Neck Neck: Yes supple Resp Effort & Inspection: normal respiratory effort, no cough and no stridor Cardio Rhythm: regular rhythm Heart sounds: S1 normal heart sound present and S2 normal heart sound present Skin General skin exam: turgor normal Neuro General: patient oriented x3, tone normal and moves all extremities Extrem Right lower extremity: no edema Left lower extremity: no edema Coding Level of Care Code Est Pt Level 4 (77545) Complex EM visit Add On G2211 Diagnoses Hypertension, essential I10 Morbid obesity due to excess calories E66.01 Menorrhagia with regular cycle N92.0 Menorrhagia type: with regular cycle Low hematocrit D64.9 Vitamin D deficiency E55.9 Cystitis N30.90 Assessment & Plan Assessment & Plan (1) Hypertension, essential: Code(s): I10 - Essential (primary) hypertension Category: Medical (2) Morbid obesity due to excess calories: Code(s): E66.01 - Morbid (severe) obesity due to excess calories Category: Medical (3) Heavy menstrual bleeding: Code(s): N92.0 - Excessive and frequent menstruation with regular cycle Category: Medical Qualifiers: Menorrhagia type: with regular cycle Qualified Code(s): N92.0 - Excessive and frequent menstruation with regular cycle (4) Low hematocrit: Code(s): D64.9 - Anemia, unspecified Category: Medical (5) Vitamin D deficiency: Code(s): E55.9 - Vitamin D deficiency, unspecified Category: Medical (6) Cystitis: Code(s): N30.90 - Cystitis, unspecified without hematuria Category: Medical Plan Patient is 34-year-old female came in today for follow-up appointment Patient is on low-dose Wegovy for weight loss She is tolerating medication I am increasing the dose to 0.5 mg Sleep study came back normal however it is recommended that patient see ENT because of snoring Patient says that as she will lose weight she feels that her snoring we will get better. Blood pressure is better now with lisinopril hydrochlorothiazide Patient is tolerating medication no side effects Lab order placed Patient is to return in 3 months for follow-up appointment Orders: Orders UA CC w/rflx Micro + Cult Today N30.90 - Cystitis, unspecified without hematuria Complete Blood Count Auto Diff Today D64.9 - Anemia, unspecified, E55.9 - Vitamin D deficiency, unspecified, E66.01 - Morbid (severe) obesity due to excess calories, I10 - Essential (primary) hypertension, N92.0 - Excessive and frequent menstruation with regular cycle Comprehensive Met. Panel Today D64.9 - Anemia, unspecified, E55.9 - Vitamin D deficiency, unspecified, E66.01 - Morbid (severe) obesity due to excess calories, I10 - Essential (primary) hypertension, N92.0 - Excessive and frequent menstruation with regular cycle LDL Cholesterol Direct Today D64.9 - Anemia, unspecified, E55.9 - Vitamin D deficiency, unspecified, E66.01 - Morbid (severe) obesity due to excess calories, I10 - Essential (primary) hypertension, N92.0 - Excessive and frequent menstruation with regular cycle Medications: Changed From Wegovy (semaglutide (weight loss)) administer weeks 1 through 4 of therapy 0.25 mg (0.5 mL) subcut QWEEK 2 mL 2RF NS E66.01 - Morbid (severe) obesity due to excess calories, I10 - Essential (primary) hypertension To semaglutide (weight loss) administer weeks 1 through 4 of therapy 0.5 mg (0.5 mL) subcut QWEEK 6.5 mL 0RF 90 days E66.01 - Morbid (severe) obesity due to excess calories, I10 - Essential (primary) hypertension Refilled lisinopril-hydrochlorothiazide 20-25 mg 1 tab PO DAILY 90 tabs 0RF
== END 2024-08-19 14:15 | disposition home or self-care (01) ==
PROVIDERS: PCP Internal Medicine; Visit Provider Internal Medicine
DX: I10 Essential (primary) hypertension (principal); E66.01 Morbid (severe) obesity due to excess calories; Z68.42 Body mass index [BMI] 45.0-49.9, adult; N92.0 Excessive and frequent menstruation with regular cycle; D64.9 Anemia, unspecified; E55.9 Vitamin D deficiency, unspecified; N30.90 Cystitis, unspecified without hematuria

== ENCOUNTER → 2024-08-19 13:36 | Outpatient (BNVA) | payer OTHER, SELFPAY | PROVIDERS: PCP Internal Medicine; Visit Provider Internal Medicine | DX: I10 Essential (primary) hypertension (principal); E66.01 Morbid (severe) obesity due to excess calories; N92.0 Excessive and frequent menstruation with regular cycle; D64.9 Anemia, unspecified; E55.9 Vitamin D deficiency, unspecified; N30.90 Cystitis, unspecified without hematuria | CPT/HCPCS: 99212 ==

== ENCOUNTER 2024-10-24 08:31 | Outpatient (REF) | payer OTHER, SELFPAY ==
[2024-10-24 10:00] LABS: MANUAL DIFF FLAG NO
[2024-10-24 10:03] LABS: Basophils Absolute Auto 0.1 X10*3/uL (0.0-0.2); Basophils Percent Auto 0.8 % (0-2); Eosinophils Absolute Auto 0.1 X10*3/uL (0.0-0.4); Hematocrit 32.1 % (37.0-47.0); Hemoglobin 10.8 g/dl (12.0-16.0); Imm Gran Abs Auto 0.02 X10*3/uL (0.00-0.03); Imm Gran Pct Auto 0.3 % (0.0-0.4); Lymphocytes Absolute Auto 2.4 X10*3/uL (1.2-4.9); Lymphocytes Percent Auto 39.7 % (20-40); Mean Corpuscular HGB Conc 33.6 g/dl (31.0-35.0); Mean Corpuscular Hemoglobin 28.7 pg (27.0-33.0); Mean Corpuscular Volume 85.4 fL (80.0-98.0); Mean Platelet Volume 8.9 fL (9.4-12.3); Monocytes Absolute Auto 0.3 X10*3/uL (0.1-1.2); Monocytes Percent Auto 5.1 % (2-11); Neutrophils Absolute Auto 3.2 x10*3/uL (2.0-8.3); Neutrophils Percent Auto 52.1 % (45-73); Platelet Count 408 X10*3/uL (160-400); Red Blood Count 3.76 X10*6/uL (4.20-5.50); Red Cell Distribution Width 14.6 % (11.0-16.0); White Blood Count 6.1 X10*3/uL (4.8-10.8)
[2024-10-24 10:56] LABS: Alanine Aminotransferase 15 U/L (0-31); Albumin Level 3.7 g/dL (3.5-5.0); Alkaline Phosphatase 64 U/L (39-117); Amylase 47 U/L (28-100); Anion Gap 11 (12-20); Aspartate Amino Transferase 19 U/L (5-31); Bilirubin Total 0.2 mg/dL (0.0-1.0); Blood Urea Nitrogen 11 mg/dL (9-16); Calcium 9.3 mg/dL (8.4-10.2); Carbon Dioxide 25 mmol/L (22-29); Chloride 110 mmol/L (96-108); Estimated Glomerular Filt Rate > 60; Glucose Random 124 mg/dL (60-115); Lipase 9 U/L (8-78); Potassium 3.7 mmol/L (3.3-5.1); Sodium 142 mmol/L (135-145); Total Protein 7.2 g/dL (6.5-8.0)
[2024-10-24 11:05] LABS: TSH reflex Free T4 0.78 uIU/mL (0.32-4.0)
[2024-10-25 16:34] LABS: LDL Cholesterol Direct 89 mg/dL (<100)
[2024-10-29 14:03] LABS: Vitamin D 25-OH, D2 <4 ng/mL; Vitamin D 25-OH, D3 15 ng/mL; Vitamin D 25-OH, Total 15 ng/mL (30-100)
== END 2024-10-24 08:32 | disposition home or self-care (01) ==
LOC: HO.HMGCLDS 08:31
PROVIDERS: PCP Internal Medicine; Visit Provider Internal Medicine
DX: N92.0 Excessive and frequent menstruation with regular cycle (principal); D64.9 Anemia, unspecified; I10 Essential (primary) hypertension; E66.01 Morbid (severe) obesity due to excess calories; Z68.42 Body mass index [BMI] 45.0-49.9, adult; E55.9 Vitamin D deficiency, unspecified
CPT/HCPCS: 36415; 80053; 82150; 82306; 83690; 83721; 84443; 85025; 96127; 99212

== ENCOUNTER 2024-10-24 08:31 | Outpatient (AMB) | payer OTHER, SELFPAY ==
--- NOTE | 2024-10-24 08:35 | MHC.PC.OV ---
Vital Signs 10/24/24 08:36 Height 5 ft 8 in Weight 311 lb 6 oz BMI 47.3 BP 136/84 Blood Pressure Location Rt brachial Position Sitting Pulse 77 Pulse Source Pulse Oximeter Pulse Oximetry (%) 99 Oxygen Delivery Method Room Air Intake Visit Reasons: F/U Weight Loss Allergies No Known Allergies [No Known Allergies*] Allergy (Verified 10/24/24 08:38) Medication List - Last Reconciled 10/24/24 by Gregg Keller MD [Blood pressure monitor As directed] cholecalciferol (vitamin D3) 25 mcg PO DAILY 90 days lisinopril-hydrochlorothiazide 20-25 mg 1 tab PO DAILY nystatin 1 appl topical DAILY 30 days semaglutide (weight loss) 0.5 mg (0.5 mL) subcut QWEEK 90 days Tobacco use date assessed: 10/24/24 Dental Screening Dental Screen Date: 10/24/24 Did you have a dental visit in the last 12 months?: Yes Did you have a dental problem in the last 6 months where you did not have access to dental care?: No Was dental information given to patient?: Patient has dentist HPI F/U Weight Loss HPI Details Chief Complaint Patient is concerned about heavy menstrual cycles and weight loss prescription coverage issues. Assessment and Plan 34-year-old female with a history of menorrhagia presenting with concerns regarding medication coverage and management of heavy menstrual cycles. The patient's anemia appears to be improving, as noted by her report of reduced bleeding. Blood pressure management is stable. Current treatment challenges involve insurance not covering her medication for weight loss, patient was taking Wegovy, leading to a discussion of alternative medications. An oral medication, phentermine, and another injectable were discussed as viable alternatives zepbound. 1. Menorrhagia Adjust current medication due to insurance coverage issues. Discussed alternatives, specifically an oral medication named Chanterene, and another injectable option, both of which will be explored in upcoming treatment adjustments. Monitoring the patient's heavy menstrual cycles to ensure mitigation of symptoms and stabilization of anemia is essential. Blood tests to assess current health status were also ordered for further management. 2. Anemia The patient's anemia appears to have improved, possibly due to adjustments in menstrual bleeding volume. Continue monitoring hematologic status through periodic lab tests to ensure no exacerbation occurs. 3. Essential Hypertension Continue current blood pressure regimen as the patient reports it is well-controlled. Advised the importance of monitoring blood pressure closely due to starting new medications that may affect cardiovascular parameters. Regular follow-ups are planned to ensure stable management. 4- zepbound script sent, if there is a problem picking up medication patient is to let me know so I can send phentermine Problem List - Menorrhagia - Essential Hypertension - Anemia - morbid obesity Patient Instructions - Proceed to have the laboratory tests completed as ordered. - Discuss with the insurance provider the coverage for newly prescribed medications. - Monitor blood pressure regularly, especially with the potential introduction of a new medication that may cause palpitations. - Return for a follow-up appointment in three months or sooner [facility], LAT[facility] Medical History Elevated IOP Surgical History No pertinent past surgical history Social History Housing: House Alcohol intake: current Alcohol intake frequency: a few times a month Patient Tobacco Use Status: Former Tobacco user e-Cigarette/Vaping Use: Never Used Cognitive needs: No Hearing needs: No Vision needs: No Questionnaire PHQ-9 Over the last 2 weeks, how often have you been bothered by any of the following problems? 1. Little interest or pleasure in doing things: not at all 2. Feeling down, depressed, or hopeless: not at all 3. Trouble falling or staying asleep, or sleeping too much: not at all 4. Feeling tired or having little energy: not at all 5. Poor appetite or overeating: not at all 6. Feeling bad about yourself - or that you are a failure or have let yourself or your family down: not at all 7. Trouble concentrating on things, such as reading the newspaper or watching television: not at all 8. Moving or speaking so slowly that other people could have noticed. Or the opposite - being so fidgety or restless that you have been moving around a lot more than usual: not at all 9. Thoughts that you would be better off or of hurting yourself in some way: not at all Total score: 0 Depression Screening Interpretation: Negative Depression Screening Done: Yes 12461 - PHQ-9 Billing: Yes Source: Developed by Olivier Friendet B.W. Joaquín, Kulwant Avendano and colleagues, with an educational shayy from [employer]. Thrive Questionnaire Date Thrive assessed: 10/24/24 I am a: Patient What is your living situation today?: I choose not to answer this question Within the past 12 months, did the food you bought not last and you didn't have the money to get more?: I choose not to answer this question Within the past 12 months, did you worry whether your food would run out before you got money to buy more?: I choose not to answer this question Do you have trouble paying for medicines?: I choose not to answer this question Do you have trouble getting transportation to medical appointments?: I choose not to answer this question Do you have trouble paying your heating and electricity bill?: I choose not to answer this question Do you have trouble taking care of your child, family member or friend?: I choose not to answer this question Do you have trouble with day-to-day activities such as bathing, preparing meals, shopping, managing finances, etc.?: I choose not to answer this question Are you currently unemployed and looking for a job?: No Are you interested in more education?: I choose not to answer this question Please select the resources that you would like help with: None Currently or been in a relationship where the following occur: I choose not to answer THRIVE Score: 0 AUDIT C Alcohol Use Questionnaire (AUDIT-C) 1. How often do you have a drink containing alcohol?: Never 3. How often do you have six or more drinks on one occasion?: Never Total Score: 0 Score Reviewed/Action Taken: Yes ELPIDIO-7 AMB Questionnaire ELPIDIO-7 Date ELPIDIO - 7 assessed: 04/08/24 Source: Developed by Drs. Nima Alexander, Esther Yanes, Kulwant Avendano and colleagues, with an educational shayy from [employer]. Review of Systems Const Denies chills and Denies fever(s) ENT Denies epistaxis and Denies nasal discharge Card Denies chest pain Resp Denies chest congestion, Denies cough and Denies hemoptysis GI Denies diarrhea and Denies nausea Skin/Breast Denies rash Neuro Reports no additional complaints Psych Reports no additional complaints Endo Reports no additional complaints Physical exam (Primary Care) Vital Signs: Last Vital Signs Pulse 77 10/24/24 08:36 BP 136/84 10/24/24 08:36 Pulse Ox 99 10/24/24 08:36 Oxygen Delivery Method Room Air 10/24/24 08:36 BMI result Body Mass Index 47.3 Tobacco/Smoking Status: Tobacco use Status Tobacco use date assessed 10/24/24 10/24/24 08:39 Patient Tobacco Use Status Former Tobacco user 10/24/24 08:38 e-Cigarette/Vaping Use Never Used 10/24/24 08:38 PHQ-9: PHQ-9 Score PHQ-9: Total score 0 10/24/24 08:44 Depression Screening Interpretation: Negative Thrive Assessment: Date of Thrive Assessment Date Thrive assessed 10/24/24 10/24/24 08:41 Currently or been in a relationship where the following occur: I choose not to answer Const General: cooperative, comfortable and no acute distress Orientation/consciousness: patient oriented x3 HENMT Head: Yes normocephalic Eyes General: appearance normal, both eyes and all related structures Neck Neck: Yes supple Resp Effort & Inspection: normal respiratory effort, no cough and no stridor Cardio Rhythm: regular rhythm Heart sounds: S1 normal heart sound present and S2 normal heart sound present Skin General skin exam: turgor normal Neuro General: patient oriented x3, tone normal and moves all extremities Extrem Right lower extremity: no edema Left lower extremity: no edema Coding Level of Care Code Est Pt Level 4 (33262) Complex EM visit Add On G2211 Diagnoses Hypertension, essential I10 Morbid obesity due to excess calories E66.01 Menorrhagia with regular cycle N92.0 Menorrhagia type: with regular cycle Low hematocrit D64.9 Vitamin D deficiency E55.9 Additional Codes PHQ-9 - 23026 - PHQ-9 Billing: Yes ([id number]) Assessment & Plan Assessment & Plan (1) Hypertension, essential: Code(s): I10 - Essential (primary) hypertension Category: Medical (2) Morbid obesity due to excess calories: Code(s): E66.01 - Morbid (severe) obesity due to excess calories Category: Medical (3) Heavy menstrual bleeding: Code(s): N92.0 - Excessive and frequent menstruation with regular cycle Category: Medical Qualifiers: Menorrhagia type: with regular cycle Qualified Code(s): N92.0 - Excessive and frequent menstruation with regular cycle (4) Low hematocrit: Code(s): D64.9 - Anemia, unspecified Category: Medical (5) Vitamin D deficiency: Code(s): E55.9 - Vitamin D deficiency, unspecified Category: Medical Plan Chief Complaint Patient is concerned about heavy menstrual cycles and weight loss prescription coverage issues. Assessment and Plan 34-year-old female with a history of menorrhagia presenting with concerns regarding medication coverage and management of heavy menstrual cycles. The patient's anemia appears to be improving, as noted by her report of reduced bleeding. Blood pressure management is stable. Current treatment challenges involve insurance not covering her medication for weight loss, patient was taking Wegovy, leading to a discussion of alternative medications. An oral medication, phentermine, and another injectable were discussed as viable alternatives zepbound. 1. Menorrhagia Adjust current medication due to insurance coverage issues. Discussed alternatives, specifically an oral medication named Chanterene, and another injectable option, both of which will be explored in upcoming treatment adjustments. Monitoring the patient's heavy menstrual cycles to ensure mitigation of symptoms and stabilization of anemia is essential. Blood tests to assess current health status were also ordered for further management. 2. Anemia The patient's anemia appears to have improved, possibly due to adjustments in menstrual bleeding volume. Continue monitoring hematologic status through periodic lab tests to ensure no exacerbation occurs. 3. Essential Hypertension Continue current blood pressure regimen as the patient reports it is well-controlled. Advised the importance of monitoring blood pressure closely due to starting new medications that may affect cardiovascular parameters. Regular follow-ups are planned to ensure stable management. 4- zepbound script sent, if there is a problem picking up medication patient is to let me know so I can send phentermine Problem List - Menorrhagia - Essential Hypertension - Anemia - morbid obesity Patient Instructions - Proceed to have the laboratory tests completed as ordered. - Discuss with the insurance provider the coverage for newly prescribed medications. - Monitor blood pressure regularly, especially with the potential introduction of a new medication that may cause palpitations. - Return for a follow-up appointment in three months or sooner Orders: Orders LDL Cholesterol Direct Today D64.9 - Anemia, unspecified, E55.9 - Vitamin D deficiency, unspecified, E66.01 - Morbid (severe) obesity due to excess calories, I10 - Essential (primary) hypertension, N92.0 - Excessive and frequent menstruation with regular cycle Complete Blood Count Auto Diff Today D64.9 - Anemia, unspecified, E55.9 - Vitamin D deficiency, unspecified, E66.01 - Morbid (severe) obesity due to excess calories, I10 - Essential (primary) hypertension, N92.0 - Excessive and frequent menstruation with regular cycle Comprehensive Met. Panel Today D64.9 - Anemia, unspecified, E55.9 - Vitamin D deficiency, unspecified, E66.01 - Morbid (severe) obesity due to excess calories, I10 - Essential (primary) hypertension, N92.0 - Excessive and frequent menstruation with regular cycle Lipase Today D64.9 - Anemia, unspecified, E55.9 - Vitamin D deficiency, unspecified, E66.01 - Morbid (severe) obesity due to excess calories, I10 - Essential (primary) hypertension, N92.0 - Excessive and frequent menstruation with regular cycle TSH reflex Free T4 Today D64.9 - Anemia, unspecified, E55.9 - Vitamin D deficiency, unspecified, E66.01 - Morbid (severe) obesity due to excess calories, I10 - Essential (primary) hypertension, N92.0 - Excessive and frequent menstruation with regular cycle Vitamin D 25-OH (D2 and D3) Today D64.9 - Anemia, unspecified, E55.9 - Vitamin D deficiency, unspecified, E66.01 - Morbid (severe) obesity due to excess calories, I10 - Essential (primary) hypertension, N92.0 - Excessive and frequent menstruation with regular cycle Amylase Today D64.9 - Anemia, unspecified, E55.9 - Vitamin D deficiency, unspecified, E66.01 - Morbid (severe) obesity due to excess calories, I10 - Essential (primary) hypertension, N92.0 - Excessive and frequent menstruation with regular cycle Medications: New Zepbound (tirzepatide (weight loss)) for 4 weeks 2.5 mg (0.5 mL) subcut QWEEK 2 mL 0RF NS E66.01 - Morbid (severe) obesity due to excess calories, I10 - Essential (primary) hypertension
[2024-10-24 08:36] VITALS: BP 136/84; PULSE 77; O2SAT 99; BMI 47.3
== END 2024-10-24 08:47 | disposition home or self-care (01) ==
PROVIDERS: PCP Internal Medicine; Visit Provider Internal Medicine
DX: I10 Essential (primary) hypertension (principal); E66.01 Morbid (severe) obesity due to excess calories; Z68.42 Body mass index [BMI] 45.0-49.9, adult; N92.0 Excessive and frequent menstruation with regular cycle; D64.9 Anemia, unspecified; E55.9 Vitamin D deficiency, unspecified

== ENCOUNTER 2024-12-10 11:12 | Outpatient (AMB) | payer OTHER, SELFPAY ==
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
[2024-12-10 11:14] VITALS: BP 132/84; PULSE 70; O2SAT 100; BMI 30.9
== END 2024-12-10 11:53 | disposition home or self-care (01) ==
PROVIDERS: PCP Internal Medicine; Visit Provider Internal Medicine
DX: E66.01 Morbid (severe) obesity due to excess calories (principal); Z68.30 Body mass index [BMI] 30.0-30.9, adult

== ENCOUNTER → 2024-12-10 11:12 | Outpatient (BNVA) | payer OTHER, SELFPAY | PROVIDERS: PCP Internal Medicine; Visit Provider Internal Medicine | DX: E66.01 Morbid (severe) obesity due to excess calories (principal); Z68.30 Body mass index [BMI] 30.0-30.9, adult; Z71.3 Dietary counseling and surveillance | CPT/HCPCS: 96127; 99212 ==

== ENCOUNTER 2025-06-02 09:05 | Outpatient (AMB) | payer OTHER, SELFPAY ==
[2025-06-02 09:06] VITALS: BP 130/82; PULSE 90; O2SAT 98; BMI 48.3
--- NOTE | 2025-06-02 09:06 | A.OFFPC_ITS ---
Vital Signs 06/02/25 09:06 Height 5 ft 8 in Weight 318 lb BMI 48.3 BP 130/82 Blood Pressure Location Lt brachial Position Sitting Pulse 90 Pulse Source Pulse Oximeter Pulse Oximetry (%) 98 Oxygen Delivery Method Room Air Intake Visit Reasons: PE Academic Records Specialist Required: No Accompanied by: Self / Same As Patient Patient : Yes (31 weeks as of today ) Allergies No Known Allergies (No Known Allergies*) Allergy (Verified 06/02/25 09:06) Medication List - Last Reconciled 06/02/25 by Gregg Keller MD aspirin 162 mg PO DAILY [Blood pressure monitor As directed] cholecalciferol (vitamin D3) 25 mcg PO DAILY 90 days ferrous sulfate 324 mg PO ONCE 90 days labetalol 50 mg (1/2 x 100 mg) PO BID 90 days nystatin 1 appl topical DAILY 30 days PNV,calcium [id number] acid 27 mg iron- 1 mg (WesTab Plus) 1 tab PO DAILY Tobacco use date assessed: 12/10/24 Dental Screening Dental Screen Date: 12/10/24 HPI PE HPI Details PE apt - The patient is a 35-year-old female pr esenting with management and mental health support during . - The patient confirmed her e day after her last visit in November and is currently taking medications under the guidance of her OBGYN. - She has a history of low hemoglobin, w ith recent levels at 10.5, attributed to heavy menstrual cycles prior to . Current management includes vitamins without additional iron supplementation. - The patient reports periods of anxiety and depression, which initially began with hormonal changes during . She has started psychiatric therapy and has been prescribed Zoloft. 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 - She is on medical leave, as her prior work conditions were unsafe for her and her patients. 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 - She plans to relocate to [place] withi n two weeks to be closer to her family, including her mother. - The patient has a supportive living ar rangement and anticipates family support post-delivery. Family History: - Mother resides in [place] Health Maintenance - vitamins recommended without additional iron; monitoring of hemoglobin levels planned due to prior anemia - Declined pertussis-tetanus immunizatio n, based on recent vaccination history [facility] managing care Diagnostic results - Labs: Hemoglobin level stable at 10.5 as of May 11, with prior levels at 10.8 in October - Iron studies to be considered; Patient Instructions - Consider optional iron levels test if concerned about low iron - Maintain vitamin regimen - Continue mental health therapy and Zol oft as prescribed by your Psych, how ever there is a risk for fetus you should be aware of that - Prepare for upcoming relocation; consi tee family support resources Review of Systems - General: No fever no chills - Neurological: No headaches no dizzin ess - Ear nose throat: No sore throat no hearing difficulty no ear pain - Cardiovascular: No syncope, no chest pain, no palpitations - Gastrointestinal: No nausea vomiting or diarrhea - Endocrine: No polyuria polydipsia no heat intolerance - Genitourinary: No dysuria - Skin: No new complaints Physical Exam General: Cooperative, healthy appearing, comfortable, no acute distress Orientation: Patient oriented x3 Head: Normal to inspection Ears: Within normal limit visually Nose: Normal external nose present Face and sinus: Normal facial exam Eyes: Appearance normal, extraocular movement intact pupils reactive Neck: Normal visual inspection and supple Respiratory: Normal respiratory effort and able to speak in complete sentences. Clear to auscultation, no stridor Cardiovascular: S1 and S2 RRR GI: Normal to inspection. Soft to palpation and nontender Skin: Turgor normal, no acute findings Neuro: Patient oriented x3, motor sensory intact, balance intact, tandem pass Extremities: Normal to inspection [facility] Medical History Elevated IOP Surgical History No pertinent past surgical history Social History Housing: House Alcohol intake: current Alcohol intake frequency: a few times a month Patient Tobacco Use Status: Former Tobacco user e-Cigarette/Vaping Use: Never Used Patient : Yes (31 weeks as of today ) service: No Current occupational status: employed Cognitive needs: No Hearing needs: No Vision needs: No Questionnaire Thrive Questionnaire Date Thrive assessed: 06/02/25 I am a: Patient What is your living situation today?: I have a steady place to live Within the past 12 months, did the food you bought not last and you didn't have the money to get more?: Never true Within the past 12 months, did you worry whether your food would run out before you got money to buy more?: Never true Do you have trouble paying for medicines?: No Do you have trouble getting transportation to medical appointments?: No Do you have trouble paying your heating and electricity bill?: No Do you have trouble taking care of your child, family member or friend?: No Do you have trouble with day-to-day activities such as bathing, preparing meals, shopping, managing finances, etc.?: No Are you currently unemployed and looking for a job?: No Are you interested in more education?: No Please select the resources that you would like help with: None Currently or been in a relationship where the following occur: No concerns reported THRIVE Score: 0 ELPIDIO-7 AMB Questionnaire ELPIDIO-7 Date ELPIDIO - 7 assessed: 12/10/24 Source: Developed by Drs. Nima Alexander, Esther Yanes, Kulwant Avendano and colleagues, with an educational shayy from [employer]. Physical exam (Primary Care) Vital Signs: Last Vital Signs Pulse 90 06/02/25 09:06 BP 130/82 06/02/25 09:06 Pulse Ox 98 06/02/25 09:06 Oxygen Delivery Method Room Air 06/02/25 09:06 BMI result Body Mass Index 48.3 Tobacco/Smoking Status: Tobacco use Status Tobacco use date assessed 12/10/24 06/02/25 09:09 Patient Tobacco Use Status Former Tobacco user 06/02/25 09:09 e-Cigarette/Vaping Use Never Used 06/02/25 09:09 Thrive Assessment: Date of Thrive Assessment Date Thrive assessed 06/02/25 06/02/25 09:09 Currently or been in a relationship where the following occur: No concerns reported Coding Level of Care Code Est Pt Level 3 (52062) Est Pt Prev Care 18-39y(75228) Diagnoses Encounter for general adult medical examination with abnormal findings Z00.01 , unspecified gestational age Z34.90 Weeks of gestation: unspecified Hypertension, essential I10 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 Morbid obesity due to excess calories E66.01 Assessment & Plan Assessment & Plan (1) Encounter for general adult medical examination with abnormal findings: Code(s): Z00.01 - Encounter for general adult medical examination with abnormal findings Category: Medical (2) : Code(s): Z34.90 - Encounter for supervision of normal , unspecified, unspecified trimester Category: Medical Qualifiers: Weeks of gestation: unspecified Qualified Code(s): Z34.90 - Encounter for supervision of normal , unspecified, unspecified trimester (3) Hypertension, essential: Code(s): I10 - Essential (primary) hypertension Category: Medical (4) Iron deficiency anemia secondary to blood loss (chronic): Code(s): D50.0 - Iron deficiency anemia secondary to blood loss (chronic) Category: Medical (5) Morbid obesity due to excess calories: Code(s): E66.01 - Morbid (severe) obesity due to excess calories Category: Medical Plan History of Present Illness - The patient is a 35-year-old female presenting with management and mental health support during . - The patient confirmed her the day after her last visit in November and is currently taking medications under the guidance of her OBGYN. - She has a history of low hemoglobin, with recent levels at 10.5, attributed to heavy menstrual cycles prior to . Current management includes vitamins without additional iron supplementation. - The patient reports periods of anxiety and depression, which initially began with hormonal changes during . She has started psychiatric therapy and has been prescribed Zoloft. 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 - She is on medical leave, as her prior work conditions were unsafe for her and her patients. 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 - She plans to relocate to [place] within two weeks to be closer to her family, including her mother. - The patient has a supportive living arrangement and anticipates family support post-delivery. Family History: - Mother resides in [place] Health Maintenance - vitamins recommended without additional iron; monitoring of hemoglobin levels planned due to prior anemia - Declined pertussis-tetanus immunization, based on recent vaccination history in 2020 [place] [facility] Care - OBGYN managing care Medications - Zoloft for depression during - vitamins for and anemia Employment - Psychiatric nurse, currently on medical leave due to mental health Diagnostic results - Labs: Hemoglobin level stable at 10.5 as of May 11, with prior levels at 10.8 in October - Iron studies to be considered; pending ferritin tests for evaluating iron stores Patient Instructions - Consider optional iron levels test if concerned about low iron - Maintain vitamin regimen - Continue mental health therapy and Zoloft as prescribed - Prepare for upcoming relocation; consider family support resources date of delivery Sept Orders: Orders LDL Cholesterol Direct Today D50.0 - Iron deficiency anemia secondary to blood loss (chronic), E66.01 - Morbid (severe) obesity due to excess calories, I10 - Essential (primary) hypertension, N92.0 - Excessive and frequent menstruation with regular cycle, Z00.01 - Encounter for general adult medical examination with abnormal findings TSH reflex Free T4 Today D50.0 - Iron deficiency anemia secondary to blood loss (chronic), E66.01 - Morbid (severe) obesity due to excess calories, I10 - Essential (primary) hypertension, N92.0 - Excessive and frequent menstruation with regular cycle, Z00.01 - Encounter for general adult medical examination with abnormal findings Ferritin Today D50.0 - Iron deficiency anemia secondary to blood loss (chronic), E66.01 - Morbid (severe) obesity due to excess calories, I10 - Essential (primary) hypertension, N92.0 - Excessive and frequent menstruation with regular cycle, Z00.01 - Encounter for general adult medical examination with abnormal findings Complete Blood Count Auto Diff Today D50.0 - Iron deficiency anemia secondary to blood loss (chronic), E66.01 - Morbid (severe) obesity due to excess calories, I10 - Essential (primary) hypertension, N92.0 - Excessive and frequent menstruation with regular cycle, Z00.01 - Encounter for general adult medical examination with abnormal findings Comprehensive Met. Panel Today D50.0 - Iron deficiency anemia secondary to blood loss (chronic), E66.01 - Morbid (severe) obesity due to excess calories, I10 - Essential (primary) hypertension, N92.0 - Excessive and frequent menstruation with regular cycle, Z00.01 - Encounter for general adult medical examination with abnormal findings
--- OUTSIDE RECORDS SUMMARY | 2025-06-02 09:26 | XMS_ITS ---
Author Name [facility] Organization Unknown Results Test Name/Text Value Interpretation Date Range Source HCG SerPl-aCnc 11888.0 mIU/mL Above high normal 12/12/2024 - 5 [facility] FLUBV RNA Nph Ql DAVID+probe Negative Normal 12/12/2024 [facility] RSV RNA Resp Ql DAVID+probe Negative Normal 12/12/2024 [facility] FLUAV RNA Nph Ql DAVID+probe Negative Normal 12/12/2024 [facility] SARS-CoV-2 RNA Resp Ql DAVID+probe Negative Normal 12/12/2024 [facility] AST SerPl-cCnc 14.0 unit/L Normal 12/12/2024 5 - 40 [facility] Anion Gap SerPl-sCnc 8.0 Normal 12/12/2024 5 - 14 [facility] eGFRcr SerPlBld CKD-EPI 2020 76.0 mL/min/1.73m2 Normal 12/12/2024 - [facility] Chloride SerPl-sCnc 100.0 mmol/L Normal 12/12/2024 98 - 1 07 [facility] Prot SerPl-mCnc 7.6 g/dL Normal 12/12/2024 6.4 - 8.5 [facility] CO2 SerPl-sCnc 26.0 mmol/L Normal 12/12/2024 24 - 32 [facility] Sodium SerPl-sCnc 134.0 mmol/L Below low normal 12/12/2024 1 35 - 145 [facility] ALP SerPl-cCnc 50.0 unit/L Normal 12/12/2024 34 - 104 [facility] Creat SerPl-mCnc 0.99 mg/dL Normal 12/12/2024 0.5 - 1 C [facility] Calcium SerPl-mCnc 10.2 mg/dL Normal 12/12/2024 8.4 - 10. 2 [facility] Potassium SerPl-sCnc 3.6 mmol/L Normal 12/12/2024 3.5 - 5.1 [facility] Albumin SerPl-mCnc 4.2 g/dL Normal 12/12/2024 3.5 - 5 [facility] BUN SerPl-mCnc 9.0 mg/dL Normal 12/12/2024 7 - 17 [facility] Bilirub SerPl-mCnc 0.3 mg/dL Normal 12/12/2024 0.3 - 1 [facility] BUN/Creat SerPl 9.1 Below low normal 12/12/2024 12 - 2 0 [facility] ALT SerPl-cCnc 9.0 unit/L Normal 12/12/2024 7 - 52 [facility] Glucose SerPl-mCnc 98.0 mg/dL Normal 12/12/2024 70 - 199 [facility] aPTT PPP 31.4 sec Normal 12/12/2024 25 - 37 [facility] INR PPP 1.0 Normal 12/12/2024 0.8 - 1.1 [facility] PT Bld 11.7 sec Normal 12/12/2024 10.5 - 13.3 [facility] H Hgb Bld-mCnc 11.8 g/dL Below low normal 12/12/2024 12.5 - 16 [facility] Basophils/leuk NFr Bld Auto 0.3 % Normal 12/12/2024 0 - 2 [facility] Monocytes/leuk NFr Bld Auto 6.0 % Normal 12/12/2024 2 - 12 [facility] Monocytes # Bld Auto 0.6 K/mcL Normal 12/12/2024 0 - 0.8 [facility] MCHC RBC Auto-mCnc 33.9 g/dL Normal 12/12/2024 32 - 36 [facility] Eosinophil # Bld Auto 0.04 K/mcL Normal 12/12/2024 0 - 0.5 [facility] MCH RBC Qn Auto 28.7 pcg Normal 12/12/2024 25 - 33 [facility] Lymphocytes/leuk NFr Bld Auto 33.1 % Normal 12/12/2024 20 - 48 [facility] Eosinophil/leuk NFr Bld Auto 0.4 % Normal 12/12/2024 0 - 6 [facility] Basophils # Bld Auto 0.03 K/mcL Normal 12/12/2024 0 - 0.2 [facility] Platelet # Bld Auto 345.0 K/mcL Normal 12/12/2024 150 - 4 50 [facility] WBC # Bld Auto 10.0 K/mcL Normal 12/12/2024 4 - 10.5 [facility] Neutrophils # Bld Auto 5.97 K/mcL Normal 12/12/2024 1.8 - 7.8 [facility] MCV RBC Auto 84.7 FL Normal 12/12/2024 78 - 100 [facility] Lymphocytes # Bld Auto 3.3 K/mcL Above high normal 12/12/2024 1 - 3.2 [facility] RDW RBC Auto-Rto 13.8 % Normal 12/12/2024 12.1 - 16.2 [facility] Neutrophils/leuk NFr Bld Auto 60.0 % Normal 12/12/2024 44 - [facility] RBC # Bld Auto 4.11 M/mcL Below low normal 12/12/2024 4.2 - 5.4 [facility] PMV Bld Auto 8.6 FL Normal 12/12/2024 7.4 - 11.4 [facility] Hct VFr Bld Auto 34.8 % Below low normal 12/12/2024 37 - 47 [facility] History of Medication Use Medication Directions Dispensed Refills Start Date End Date Stat aluminum-magnesium hydroxide-simethicon e (MAALOX) 200-200-20 mg/5 mL suspension 30 mL 30 mL, oral, Once, On [employer] 12/11/24 at 2108, For 1 dose 12/12/2024 12/12/19 25 completed diphenhydrAMINE (BENADRYL) capsule 50 mg 50 mg, oral, Once, On [employer] 12/11/24 at 2315, For 1 dose 12/12/2024 12/12/19 25 completed famotidine (PEPCID) tablet 20 mg 20 mg, oral, Once, On [employer] 12/11/24 at 2315, For 1 dose 12/12/2024 12/12/19 25 completed lidocaine (XYLOCAINE) 2 % mouth solution 15 mL 15 mL, Mouth/Throat, Once, On [employer] 12/11/24 at 2108, For 1 dose 12/12/2024 12/12/19 25 completed sodium chloride 0.9 % intravenous solution 50 mL 50 mL, intravenous, Once in imaging, Starting on [employer] 12/11/24 at 2138, For 1 dose 12/12/2024 active lisinopril-hydroCHLO ROthiazide (PRINZIDE,ZESTORETIC ) 20-25 mg per tablet 12/08/2024 active Zepbound 2.5 mg/0.5 mL injection USE 1 PEN SUBCUTANEOUSLY EVERY WEEK FOR 4 WEEKS 10/28/2024 active Problems Problem Status Onset Date Problem Type Date of Resolution Source as incidental finding active EncounterDiagnosisAct [facility] Contact dermatitis due to cosmetics, unspecified contact dermatitis type active EncounterDiagnosisAct [facility] Encounters Encounter Type Encounter Reason Primary Diagnosis Location Date Emergency L facial numbness state , incidental [facility] 12/11/2024 Care Team Organization Name Specialty Phone Email Start Date End Da te [facility] 12/25/2024 [facility] 12/12/2024
--- OUTSIDE RECORDS SUMMARY | 2025-06-02 09:26 | XMS_ITS | Clinical Summary ---
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 82, resp. rate 12, height 1.727 m (68 ), weight 135 kg (298 lb 3.2 oz), last menstrual period 10/19/2024. See OB physical and labs. Vitals BP: (!) 140/82 Weight: 135 kg (298 lb 3.2 oz) No results found for: ABORH Lab Results Component Value Date RH Positive 01/06/2025 A: at 11w6d weeks gestation. 1. Encounter for supervision of normal first in first trimester 2. Advanced maternal age, primigravida, antepartum 3. Obesity, morbid (CMS/HCC) 4. Cutaneous candidiasis 5. Idiopathic intracranial hypertension 6. Screen for STD (sexually transmitted disease) 7. Chronic hypertension affecting P: Genprobe obtained today. Oriented to THoNE MG and anticipated course. Discussed collaborative practice and [facility] delivery. Reviewed healthy eating and normal weight gain in . Encouraged patient to push PO fluids. Counseled about warning signs of the first trimester and how to contact supervisor alteration workroom provider. Discussed the benefits of breast feeding and strongly encouraged to consider this. Counseled regarding the diagnosis of anomalies. She was offered a referral to maternal medicine for nuchal lucency/Humble testing. She already accepted the referral. RTO 4 weeks. Going to [place] in February. Maybe relocating to [place] at some point during . The patient does not require anesthesia consult. This patient's VTE risk status is low. Moore Depression Scale: In the Past 7 Days I have been able to laugh and see the funny side of things.: As much as I always could I have looked forward with enjoyment to things.: As much as I ever did I have blamed myself unnecessarily when things went wrong.: Not very often I have been anxious or worried for no good reason.: Hardly ever I have felt scared or panicky for no good reason.: No, not much Things have been getting on top of me.: No, most of the time I have coped quite well I have been so unhappy that I have had difficulty sleeping.: Not very often I have felt sad or miserable.: No, not at all I have been so unhappy that I have been crying.: No, never The thought of harming myself has occurred to me.: Never Moore Depression Scale Total: 5 [place] SCREENING CHARGE (Clinic Only): 34342 Idiopathic intracranial hypertension Referred to Neurology to re-establish care and get recommendations on treatment and labor management. Chronic hypertension affecting Discussed increased risks of pre-eclampsia, eclampsia in . I recommended she start ASA to decrease risk. I explained we will likely need to adjust her medications due to her relatively poor control already. She asked to see what happens next visit given she forgot a dose. This is reasonable. Will plan for: Serial growth u/s at 28 weeks Weekly NST at 32 weeks Twice weekly testing at 36 weeks Deliver 37-39 weeks Cutaneous candidiasis Will treat with topical methods and refer to Derm for possible LP. Obesity, morbid (CMS/HCC) Discussed risks associated with obesity in including increased risk of HTN, diabetes, . Also discussed risk of undiagnosed anomalies. She was counseled that recommended weight gain is between 10-15 lb. She should eat a balanced diet and incorporate regular moderate activity. I did explain that if she reaches a BMI of 50 by 28 weeks, she will need to be transferred to [facility] for her safety during delivery. She voiced understanding and agreed. Valerie Puri MD on 01/16/2025 at 10:51 AM EST Progress Notes - Clinical Pate pport - 01/06/2025 - GA:10w3d 01/06/2025 - 10w3d - Kaylee Lerma RN Liss Cotto is a 34 y.o. old female at 11w2d. This is Unplanned. The patient feels happy about the . The FOB is happy. Sidney and david live together. He has a 3 yr old daughter he is involved with. Patient's last menstrual period was Patient's last menstrual period was 10/19/2024 (exact date). (exact date)., which would make her currently 11w2d with an Estimated Date of Delivery: 07/26/25. She is certain of her date. An ultrasound has not been ordered to confirm dating Patient has significant history of: No previous history of , CHTN, obesity, AMA, 12/11/24 was seen in the ED with facial weakness ? [place] Palsy R/O Dx was an allergic reaction to a lip balm. Symptoms resolved OB Past Medical History: Have you had or do you currently have: Diabetes? No Hypertension? Yes Heart disease, Mitral valve Prolapse, or Rheumatic fever? No An Autoimmune disease such as Lupus or Rheumatoid Arthritis? No Epilepsy, Seizures, or Spells? No Migraine Headaches? No Stroke or loss of function or sensation? No Additional Questions: Have you ever been treated for anxiety and/or depression? No Are you having problems with crying spells or loss of self-esteem? No Have you ever required psychiatric care? No Have you ever had hepatitis, liver disease or jaundice? No Have you ever been treated for blood clots in your veins, deep venous thrombosis, inflammation in the veins, thrombosis, phlebitis, pulmonary embolism or varicosities? No Have you had excessive bleeding after surgery or dental work? No Do you bleed more than other women after a cut or scratch? No Do you have a history of anemia? No Have you ever had Thyroid problems or taken Thyroid medications? No Do you have any other Endocrine Problems (ie. PCOS)? No Have you ever been in a major accident or suffered serious trauma? No Within the last year, has anyone hit, slapped, kicked or otherwise hurt you? No In the last year, has anyone forced you to have sex when you didn't want to? No Do you feel safe at home? Yes Have you ever received a blood transfusion? No Would you refuse a blood transfusion if a doctor judged to be medically necessary? No Would you rather than receive a blood transfusion? No If you answered yes to the above questions, is this for advent reasons? No Do you know what your blood type is or if you are Rh Negative? No Have you ever had abnormal antibodies in your blood? No Have you ever had asthma? No Have you every had Tuberculosis? No Have you ever had any breast problems? No Have you ever breast fed? No Have you ever had any gynecological surgical procedures such as cervical conization, LEEP procedure, Laser treatment, cryosurgery of the cervix or dilation and curettage, etc? No Have you had any other surgical procedures? No Have you ever been hospitalized overnight for a non-surgical reason excluding normal delivery? No Have you ever had anesthesia complications? No Have you ever had an abnormal pap smear? HPV Do you have a history of abnormalties of the uterus? No Did your mother take YANICK or any other hormones when she was with you? No Did it take more than one year to become ? No Have you ever been evaluated or treated for infertility? No Is there a history of medical problems in your family which you feel might adversely affect your health or ? No Do you have any other problems we have not asked you about which you feel may be important for us to know for this ? No Do you currently have any of the following symptoms since your last menstrual period: Abdominal pain, blood in the stool or urine, chest pain, shortness of breath, coughing or vomiting up blood, your heart racing or skipping beats, nausea and/or vomiting, pain on urination, or vaginal discharge or vaginal bleeding? Yes N/V moderate, spotted 12/18/24 for 1 week OB Infection History: Do you object to being tested for Hepatitis B? No Do you object to being tested for HIV? No Do you feel that you are at high risk for coming contact with the AIDS virus? No Have you ever been treated for tuberculosis? No Have you ever received the BCG vaccine? No Have you ever had a positive skin test for Tuberculosis? No Do you live with someone who has Tuberculosis? No Have you ever been exposed to Tuberculosis? No Do you have Genital Herpes? No Does your partner have Genital Herpes? No Have you had a rash or viral illness since your last period? No Have you ever had Gonorrhea, Chlamydia, Syphilis, Venereal Warts, Trichomoniasis, Pelvic Inflammatory Disease (PID) or any other sexually transmitted disease? No Do you know if you are a Group B Streptococcus Carrier? No Did you have the Chicken Pox/Varicella? No Were you vaccinated against Chicken Pox/Varicella? Yes Have you had any other infectious diseases? No Liss Cotto has been instructed on the following: random urine drug screening policy and an initial urine drug screen has been ordered., She has been counseled regarding avoiding hazards, litter boxes, smoking, drug and alcohol use during Liss Cotto has also been informed of the welding operator provider recommendation for first trimester nuchal lucency testing to be performed during her . Liss Cotto has also been made aware of the time sensitive nature for this testing to be completed. . The patient now has a gestational age of 11w2d. The patient would be due for this testing prior to 14 weeks gestation which would be on 01/25/25 Ethnicity Based Genetic Testing has been reviewed and the [email or web address] information sheet has been provided to the patient in their After Visit Summary. The patient was also advised that genetic testing may not be covered by all insurances. The patients states that they understand this information. The patient states that she has not had the genetic screening for Horizon 14 done in the past during a previous . . The patient has agreed that she does want genetic testing for Horizon 14 The following Labs have been ordered: Obstetric Panel, HgA1c, Early Glucose Screen, HIV with verbal Consent, Hepatitis C, Varicella titer, Urine Culture, Pre- Eclampsia Panel, UDS, Panorama without gender, and Horizon 14 panel She is aware that her insurance may or may not cover Panorama and/or Horizon 14 test and discussed alcaraz only tomas for test(s) - info given today in her after visit summary . She would like to proceed with testing. Electronically signed by: Kaylee Lerma RN 01/06/25 10:26 AM EST Last Filed Vital Signs Vital Sign Reading Time Taken Comments Blood Pressure 124/89 05/08/2025 11:05 AM EDT Pulse 88 05/08/2025 11:05 AM EDT Temperature 37.2 C (98.9 F) 12/11/2024 8:21 PM EST Respiratory Rate 12 05/08/2025 11:05 AM EDT Oxygen Saturation 100% 12/12/2024 12:34 AM EST Inhaled Oxygen Concentration - - Weight 142 kg (312 lb) 05/08/2025 11:05 AM EDT Height 172.7 cm (5' 8 ) 05/08/2025 11:05 AM EDT Body Mass Index 47.44 05/08/2025 11:05 AM EDT Plan of Treatment Upcoming Encounters Date Type Department Care Team (Late st Contact Info) Description 06/03/2025 8:30 AM EDT Routine Obstetrics and Gynecology - [address] [phone] Reginaldo Grey, CNM [address] [place] [address] 06/08/2025 2:00 PM EDT Ancillary Procedure Maternal Medicine - [address] [id number] Health Maintenance Due Date Last Done Comments Hepatitis B Vaccines (1 of 3 - 19+ 3-dose series) 01/26/2007 COVID-19 Vaccine (2023-2 5 season) 2024 01/17/2022, 04/20/2021, 03/30/2021 Cholesterol Screening (Lipid Panel) 09/15/2024 Influenza Vaccine (#1) 2025 , 10/07/2021, 09/06/2018 Social Influencers of Health Screening 12/25/2025 12/25/2024 Cervical Cancer Screening: HPV 12/27/2025 12/27/2020 Hypertension/CHF/CAD Annual BMP Blood Test 01/06/2026 01/06/2025, 12/11/2024 Depression Screening 01/09/2026 01/09/2025 DTaP,Tdap,and Td Vaccines (3 - Td or Tdap) 06/21/2031 06/21/2021, 11/18/2019 HIV Screening Completed 01/06/2025, 12/15/2019 Hepatitis C Screening Completed 01/06/2025 , 12/15/2019 HIB Vaccines Aged Out No longer eligi ble based on patient's age to complete this topic HPV Vaccines Aged Out No longer eligi ble based on patient's age to complete this topic Hepatitis A Vaccines Aged Out No long er eligible based on patient's age to complete this topic IPV Vaccines Aged Out No longer eligi ble based on patient's age to complete this topic Meningococcal ACWY Vaccine Aged Out N o longer eligible based on patient's age to complete this topic Meningococcal B Vaccine Aged Out No l onger eligible based on patient's age to complete this topic Pneumococcal Vaccine: Pediatrics (0 to 5 Years) and At-Risk Patients (6 to 49 Years) Aged Out No longer eligible b ased on patient's age to complete this topic RSV Immunization Patients Under 20 months Aged Out No longer eligible b ased on patient's age to complete this topic Procedures Procedure Name Priority Date/Time Associated Diagnosis Comments US OB FOLLOWUP PER FETUS Routine 05/11/2025 2:19 PM EDT Maternal hypertension in third trimester Maternal obesity syndrome in second trimester Other obesity due to excess calories affecting in second trimester Obesity affecting in second trimester Advanced maternal age in multigravida, second trimester CBC WITH AUTO DIFFERENTIAL Routine 05/08/2025 1:09 PM EDT Encounter for supervision of normal first in second trimester 23 weeks gestation of Encounter for screening, unspecified GTT GESTATIONAL 1 HOUR Routine 1:09 PM EDT Encounter for supervision of normal first in second trimester 23 weeks gestation of Encounter for screening, unspecified CBC AND DIFFERENTIAL Routine 05/08/2025 1:09 PM EDT Encounter for supervision of normal first in second trimester 23 weeks gestation of Encounter for screening, unspecified GLUCOSE TOLERANCE TEST, 1H GESTATION Routine 05/08/2025 1:09 PM EDT Encounter for supervision of normal first in second trimester 23 weeks gestation of Encounter for screening, unspecified TREPONEMA PALLIDUM ANTIBODY WITH REFLEX TO RPR AND PARTICLE AGGLUTINATION Routine 05/08/2025 1:09 PM EDT Encounter for supervision of normal first in second trimester 23 weeks gestation of Encounter for screening, unspecified Screen for STD (sexually transmitted disease) US OB TRANSVAGINAL Routine 04/08/2025 3: 42 PM EDT Obesity complicating , second trimester AMA (advanced maternal age) multigravida 35+, third trimester Short cervix in second trimester, antepartum US OB FOLLOWUP PER FETUS Routine 04/08/2025 3:42 PM EDT Obesity complicating , second trimester AMA (advanced maternal age) multigravida 35+, third trimester Encounter for follow-up ultrasound of anatomy US OB TRANSVAGINAL Routine 03/30/2025 11 :04 AM EDT Maternal obesity syndrome in second trimester Other obesity due to excess calories affecting in second trimester Obesity affecting in second trimester Advanced maternal age in multigravida, second trimester Encounter for screening for malformations Encounter for screening for cervical length Short cervix during in second trimester US OB FOLLOWUP PER FETUS Routine 03/30/2025 11:04 AM EDT Encounter for anatomic survey Maternal obesity syndrome in second trimester Other obesity due to excess calories affecting in second trimester Obesity affecting in second trimester Advanced maternal age in multigravida, second trimester TRICHOMONAS VAGINALIS ANTIGEN Routine 03/23/2025 12:18 PM EDT Short cervix affecting WET PREP, GENITAL Routine 03/23/2025 12: 18 PM EDT Short cervix affecting CHLAMYDIA TRACHOMATIS AND NEISSERIA GONORRHOEAE PCR Routine 03/23/2025 12:18 PM EDT Short cervix affecting US OB TRANSVAGINAL Routine 03/23/2025 11 :13 AM EDT Encounter for anatomic survey Maternal obesity syndrome in second trimester Other obesity due to excess calories affecting in second trimester Obesity affecting in second trimester Advanced maternal age in multigravida, second trimester Encounter for screening for cervical length US OB DETAILED SINGLE OR FIRST GESTATION Routine 03/23/2025 11:13 AM EDT Encounter for anatomic survey Maternal obesity syndrome in second trimester Other obesity due to excess calories affecting in second trimester Obesity affecting in second trimester Advanced maternal age in multigravida, second trimester ALPHA FETOPROTEIN, MATERNAL Routine 03/12/2025 1:27 PM EDT Primigravida of advanced maternal age in second trimester HEPATITIS C ANTIBODY Routine 01/06/2025 12:27 PM EST Encounter for supervision of normal first in first trimester HIV 1, 2 ANTIBODY, P24 ANTIGEN WITH REFLEX TO DIFFERENTIATION Routine 01/06/2025 12:27 PM EST Encounter for supervision of normal first in first trimester CREATININE, SERUM Routine 01/06/2025 12: 27 PM EST Encounter for supervision of normal first in first trimester HM HPV Routine 12/27/2020 from Last 3 Months or Most Recently Relevant to Health Maintenance Results * US OB Followup per Fetus (05/11/2025 2:19 PM EDT) Only the most recent of3 resultswithin the time period is included. Anatomical Region Laterality Modality Body Ultrasound 05/11/2025 2:20 PM EDT Narrative 05/12/2025 7:46 AM EDT OBSTETRICS REPORT (Signed Final 05/12/2025 07:46 am) PATIENT INFO: ID #: [id number] : [birth year] (35 yrs)(F) Name: LISS Visit Date: 05/11/2025 02:20 pm KIRTI PERFORMED BY: Attending: Misty Anderson MD Performed By: Marisa Zimmerman [facility] Referred By: Valerie Puri MD Ref. Address: [address] [place] [id number] Location: [facility]) SERVICE(S) PROVIDED: [place] [id number] INDICATIONS: Pre-existing essential hypertension O10.013 complicating , third trimester Advanced maternal age in nullipara, third O09.513 trimester Obesity complicating , 3rdtrimester O99.213 Morbid obesity E66.01 Cervical shortening, third trimester O26.873 28 weeks gestation of Z3A.28 TECHNIQUE/SCAN QUALITY: Technique: Transabdominal Scan Satisfactory Quality: OB HISTORY: : 1 VITAL SIGNS: Weight (lb) Height BMI 311 5'8 47.28 EVALUATION: Number Of Fetuses: 1 Heart Rate(bpm): 150 Cardiac Activity: Regular rhythm Presentation: Vertex Placenta Location: Anterior Appearance: Grade 2 Relation to CVX: No previa Amniotic Fluid DULCE MARIA FV: Within Normal Limits RUQ(cm) RLQ(cm) LUQ(cm) LLQ(cm) 4.5 2.75 2.95 2.69 DULCE MARIA Sum(cm) %Tile Largest Pocket(cm) 12.89 36 4.5 BIOMETRY: BPD: 73.7 mm G.Age: 29w 4d 78 % HC: 264.2 mm G.Age: 28w 5d 32 % AC: 233.3 mm G.Age: 27w 5d 24 % FL: 55.6 mm G.Age: 29w 2d 65 % CI: 77.92 % 70 - 86 FL/HC: 21.0 % 18.8 - 20.6 HC/AC: 1.13 1.05 - 1.21 FL/BPD: 75.4 % 71 - 87 FL/AC: 23.8 % 20 - 24 Est. FW: 1229 gm 2 lb 11 oz 43 % GESTATIONAL AGE: LMP: 29w 1d Date: 10/19/24 KITTY: 07/26/25 U/S Today: 28w 6d KITTY: 07/28/25 Best: 28w 2d Det. By: Anil Elias 1st KITTY: 08/01/25 (01/12/25) STANDARD ANATOMY: Cranium: Normal appearance Stomach: Normal appearance Kidneys: Normal appearance Bladder: Normal appearance COMMENTS: Ms. Cotto is being seen for follow up assessment of growth and 4-chamber view. - This is complicated by a short cervix, taking vaginal progesterone. Her medical history is significant for chronic hypertension. She takes labetalol and 162 mg aspirin. - She had cell free DNA screening. The results are low risk for all conditions assessed. - Ultrasound findings: The estimated weight is 1,229 grams, at the 43rd percentile. The amniotic fluid index is 12.89 cm, appropriate for the gestational age. Views of 4CH remain suboptimal, however reassuring. - Plan: The patient has been scheduled to return in 4 weeks for a follow-up assessment of growth. Misty Anderson MD Electronically Signed Final Report 05/12/2025 07:46 am Procedure Misty Raza MD - 05/12/2025 OBSTETRICS REPORT (Signed Final 05/12/2025 07:46 am) PATIENT INFO: ID #: [id number] : [birth year] (35 yrs)(F) Name: LISS Visit Date: 05/11/2025 02:20 pm KRITI PERFORMED BY: Attending: Misty Anderson MD Performed By: Marisa Zimmerman RDMS Referred By: Valerie Puri MD Ref. Address: [address] [place] [address] Location: [facility]) SERVICE(S) PROVIDED: [place] [id number] INDICATIONS: Pre-existing essential hypertension O10.013 complicating , third trimester Advanced maternal age in nullipara, third O09.513 trimester Obesity complicating , 3rdtrimester O99.213 Morbid obesity E66.01 Cervical shortening, third trimester O26.873 28 weeks gestation of Z3A.28 TECHNIQUE/SCAN QUALITY: Technique: Transabdominal Scan Satisfactory Quality: OB HISTORY: : 1 VITAL SIGNS: Weight (lb) Height BMI 311 5'8 47.28 EVALUATION: Number Of Fetuses: 1 Heart Rate(bpm): 150 Cardiac Activity: Regular rhythm Presentation: Vertex Placenta Location: Anterior Appearance: Grade 2 Relation to CVX: No previa Amniotic Fluid DULCE MARIA FV: Within Normal Limits RUQ(cm) RLQ(cm) LUQ(cm) LLQ(cm) 4.5 2.75 2.95 2.69 DULCE MARIA Sum(cm) %Tile Largest Pocket(cm) 12.89 36 4.5 BIOMETRY: BPD: 73.7 mm G.Age: 29w 4d 78 % HC: 264.2 mm G.Age: 28w 5d 32 % AC: 233.3 mm G.Age: 27w 5d 24 % FL: 55.6 mm G.Age: 29w 2d 65 % CI: 77.92 % 70 - 86 FL/HC: 21.0 % 18.8 - 20.6 HC/AC: 1.13 1.05 - 1.21 FL/BPD: 75.4 % 71 - 87 FL/AC: 23.8 % 20 - 24 Est. FW: 1229 gm 2 lb 11 oz 43 % GESTATIONAL AGE: LMP: 29w 1d Date: 10/19/24 KITTY: 07/26/25 U/S Today: 28w 6d KITTY: 07/28/25 Best: 28w 2d Det. By: Anil Elias 1st KITTY: 08/01/25 (01/12/25) STANDARD ANATOMY: Cranium: Normal appearance Stomach: Normal appearance Kidneys: Normal appearance Bladder: Normal appearance COMMENTS: Ms. Cotto is being seen for follow up assessment of growth and 4-chamber view. - This is complicated by a short cervix, taking vaginal progesterone. Her medical history is significant for chronic hypertension. She takes labetalol and 162 mg aspirin. - She had cell free DNA screening. The results are low risk for all conditions assessed. - Ultrasound findings: The estimated weight is 1,229 grams, at the 43rd percentile. The amniotic fluid index is 12.89 cm, appropriate for the gestational age. Views of 4CH remain suboptimal, however reassuring. - Plan: The patient has been scheduled to return in 4 weeks for a follow-up assessment of growth. Misty Anderson MD Electronically Signed Final Report 05/12/2025 07:46 am us Valerie Puri MD IMG OB US PROCEDURES Final Result * Treponema pallidum antibody with reflex to RPR and particle agglutination (05/08/2025 1:09 PM EDT) T. Pallidum Antibodies Negative Negative LAB CHEMISTRY METHOD 05/08/2025 5:06 PM EDT [facility] Blood Venous blood specimen / Unknown Venipuncture / Unknown 05/08/2025 1:09 PM EDT 05/08/2025 1:09 PM EDT Dottie Juan [facility] BLOOD ORDERABLES Final Resu lt Performing Organization Address City/[facility]/ZIP Co de Phone Number [facility] [address] [place] [address], [place] [phone] * GTT gestational 1 hour (05/08/2025 1:09 PM EDT) [facility] Glucose, 1 HR Gestational 122 See Comment mg/dL LAB CHEMISTRY METHOD 05/08/2025 4:53 PM EDT [facility] Blood Venous blood specimen / Unknown Venipuncture / Unknown 05/08/2025 1:09 PM EDT 05/08/2025 1:09 PM EDT Narrative [facility] - 05/08/2025 4:53 PM EDT Gestational Diabetes Challenge Reference Range: 1 hour Glucose <140 mg/dL Dottie Martinez [facility] BLOOD ORDERABLES Final Resu lt Performing Organization Address City/[facility]/ZIP Co de Phone Number [facility] [address] [place] [address], [place] [phone] * (ABNORMAL) CBC auto differential (05/08/2025 1:09 PM EDT) [facility] WBC 10.4 4.8 - 10.8 K/[facility] LAB HEMETOLOGY METHOD 05/08/2025 4:30 PM EDT [facility] RBC 3.60(L) 3.80 - 4.80 M/mcL LAB HEMETOLOGY METHOD 05/08/2025 4:30 PM EDT [facility] Hemoglobin 10.5(L) 11.5 - 16.0 g/dL LAB HEMETOLOGY METHOD 05/08/2025 4:30 PM EDT [facility] Hematocrit 33.8(L) 35.0 - 47.0 % LAB HEMETOLOGY METHOD 05/08/2025 4:30 PM EDT [facility] MCV 93.6 79.0 - 98.0 FL LAB HEMETOLOGY METHOD 05/08/2025 4:30 PM EDT [facility] MCH 29.1 27.0 - 32.0 pcg LAB HEMETOLOGY METHOD 05/08/2025 4:30 PM EDT [facility] MCHC 31.1(L) 32.0 - 37.0 g/dL LAB HEMETOLOGY METHOD 05/08/2025 4:30 PM [facility] RDW 14.2 11.0 - 15.0 % LAB HEMETOLOGY METHOD 05/08/2025 4:30 PM EDT [facility] Platelets 369 130 - 400 K/mcL LAB HEMETOLOGY METHOD 05/08/2025 4:30 PM EDT [facility] MPV 8.9 7.0 - 11.0 FL LAB HEMETOLOGY METHOD 05/08/2025 4:30 PM [facility] NRBC 0.0 <1.0 % LAB HEMETOLOGY METHOD 05/08/2025 4:30 PM EDT [facility] NRBC Absolute 0.00 <0.10 K/mcL LAB HEMETOLOGY METHOD 05/08/2025 4:30 PM [facility] Neutrophils Relative 66.9 % LAB HEMETOLOGY METHOD 05/08/2025 4:30 PM [facility] Lymphocytes Relative 26.1 % LAB HEMETOLOGY METHOD 05/08/2025 4:30 [facility] Monocytes Relative 4.9 % LAB HEMETOLOGY METHOD 05/08/2025 4:30 PM EDT [facility] Eosinophils Relative 1.0 % LAB HEMETOLOGY METHOD 05/08/2025 4:30 PM EDT [facility] Basophils Relative 0.3 % LAB HEMETOLOGY METHOD 05/08/2025 4:30 PM EDT [facility] Immature Granulocytes Relative 0.8 % LAB HEMETOLOGY METHOD 05/08/2025 4:30 PM EDT [facility] Neutrophils Absolute 6.97 1.50 - 7.00 K/mcL LAB HEMETOLOGY METHOD 05/08/2025 4:30 PM EDT [facility] Lymphocytes Absolute 2.72 1.00 - 5.00 K/mcL LAB HEMETOLOGY METHOD 05/08/2025 4:30 PM EDT [facility] Monocytes Absolute 0.51 0.20 - 1.00 K/mcL LAB HEMETOLOGY METHOD 05/08/2025 4:30 PM EDT [facility] Eosinophils Absolute 0.10 0.00 - 0.50 K/mcL LAB HEMETOLOGY METHOD 05/08/2025 4:30 PM EDT [facility] Basophils Absolute 0.03 0.00 - 0.20 K/mcL LAB HEMETOLOGY METHOD 05/08/2025 4:30 PM EDT [facility] Immature Granulocytes Absolute 0.08(H) 0.00 - 0.03 K/mcL LAB HEMETOLOGY METHOD 05/08/2025 4:30 PM EDT [facility] Blood Venous blood specimen / Unknown Venipuncture / Unknown 05/08/2025 1:09 PM EDT 05/08/2025 1:09 PM EDT us Dottie HERRERA LAB BLOOD ORDERABLES Final Resu lt [facility] [address] [place] [address], [place] [phone] * US OB Transvaginal (04/08/2025 3:42 PM EDT) Only the most recent of3 resultswithin the time period is included. Anatomical Region Laterality Modality Body Ultrasound 04/08/2025 3:01 PM EDT Narrative 04/10/2025 8:37 AM EDT OBSTETRICS REPORT (Signed Final 04/10/2025 08:37 am) PATIENT INFO: ID #: [id number] : [birth year] (35 yrs)(F) Name: LISS Visit Date: 04/08/2025 03:01 pm GILLYLAN PERFORMED BY: Attending: Misty Anderson MD Performed By: Kylie Allen [facility] Referred By: Valerie Puri MD Ref. Address: [address] [place] [id number] Location: [facility]) SERVICE(S) [place]: [place] [address] OB Transvaginal ultrasound 01261 INDICATIONS: Pre-existing essential hypertension O10.012 complicating , second trimester Obesity complicating , 2nd O99.212 trimester Morbid obesity E66.01 Cervical shortening, second trimester O26.872 Encounter for other screening Z36.2 follow-up 23 weeks gestation of Z3A.23 TECHNIQUE/SCAN QUALITY: Technique: Transabdominal Scan Satisfactory Quality: OB HISTORY: : 1 VITAL SIGNS: Weight (lb) Height BMI 311 5'8 47.28 EVALUATION: Number Of Fetuses: 1 Heart Rate(bpm): 155 Cardiac Activity: Observed Appears regular Presentation: Cephalic Placenta Location: Anterior Appearance: Grade 1 Relation to CVX: No previa Amniotic Fluid DULCE MARIA FV: Within Normal Limits Largest Pocket(cm) 5.84 Comment: A >2 x 2 cm pocket of fluid is noted. BIOMETRY: GESTATIONAL AGE: LMP: 24w 3d Date: 10/19/24 KITTY: 07/26/25 Best: 23w 4d Det. By: Anil Elias 1st KITTY: 08/01/25 (01/12/25) DETAILED ANATOMY: Heart 4 Chamber View: Suboptimal views Aortic Arch: Normal appearance SVC: Normal appearance IVC: Normal appearance Ductal Arch: Normal appearance Comment: The cardiac axis is 42.42 degrees Abdomen Stomach: Normal appearance Urinary Bladder: Normal appearance R. Kidney: Normal appearance L. Kidney: Normal appearance CERVIX UTERUS ADNEXA: Cervix Length: 2.9 cm. Within Normal Limits COMMENTS: Ms. Cotto is being seen to complete the detailed ultrasound (4 chamber, ductal arch, aortic arch, SVC/IVC and axis) and to reassess cervical length. - This is complicated by a short cervix at her detailed ultrasound, she recently started progesterone. Her medical history is significant for chronic hypertension. She takes labetalol and 162 mg aspirin. - She had cell free DNA screening. The results are low risk for all conditions assessed. - Ultrasound findings: Views of the cardiac axis, SVC/IVC, ductal arch, aortic arch appear normal. The 4 chamber remains suboptimal. - A transvaginal ultrasound was performed. The cervix appears long and closed, measuring 2.9 cm. Plan: growth at 28 weeks is scheduled due to chronic hypertension and BMI >40. Views of the 4 chamber will also be obtained. Misty Anderson MD Electronically Signed Final Report 04/10/2025 08:37 am Procedure Misty Raza MD - 04/10/2025 OBSTETRICS REPORT (Signed Final 04/10/2025 08:37 am) PATIENT INFO: ID #: [id number] : [birth year] (35 yrs)(F) Name: LISS Visit Date: 04/08/2025 03:01 pm DENISEYLAN PERFORMED BY: Attending: Misty Anderson MD Performed By: Kylie Allen [facility] Referred By: Valerie Puri MD Ref. Address: [address] [place] [address] Location: [facility]) SERVICE(S) [place]: [place] [address] OB Transvaginal ultrasound 49572 INDICATIONS: Pre-existing essential hypertension O10.012 complicating , second trimester Obesity complicating , 2nd O99.212 trimester Morbid obesity E66.01 Cervical shortening, second trimester O26.872 Encounter for other screening Z36.2 follow-up 23 weeks gestation of Z3A.23 TECHNIQUE/SCAN QUALITY: Technique: Transabdominal Scan Satisfactory Quality: OB HISTORY: : 1 VITAL SIGNS: Weight (lb) Height BMI 311 5'8 47.28 EVALUATION: Number Of Fetuses: 1 Heart Rate(bpm): 155 Cardiac Activity: Observed Appears regular Presentation: Cephalic Placenta Location: Anterior Appearance: Grade 1 Relation to CVX: No previa Amniotic Fluid DULCE MARIA FV: Within Normal Limits Largest Pocket(cm) 5.84 Comment: A >2 x 2 cm pocket of fluid is noted. BIOMETRY: GESTATIONAL AGE: LMP: 24w 3d Date: 10/19/24 KITTY: 07/26/25 Best: 23w 4d Det. By: Anil Elias 1st KITTY: 08/01/25 (01/12/25) DETAILED ANATOMY: Heart 4 Chamber View: Suboptimal views Aortic Arch: Normal appearance SVC: Normal appearance IVC: Normal appearance Ductal Arch: Normal appearance Comment: The cardiac axis is 42.42 degrees Abdomen Stomach: Normal appearance Urinary Bladder: Normal appearance R. Kidney: Normal appearance L. Kidney: Normal appearance CERVIX UTERUS ADNEXA: Cervix Length: 2.9 cm. Within Normal Limits COMMENTS: Ms. Cotto is being seen to complete the detailed ultrasound (4 chamber, ductal arch, aortic arch, SVC/IVC and axis) and to reassess cervical length. - This is complicated by a short cervix at her detailed ultrasound, she recently started progesterone. Her medical history is significant for chronic hypertension. She takes labetalol and 162 mg aspirin. - She had cell free DNA screening. The results are low risk for all conditions assessed. - Ultrasound findings: Views of the cardiac axis, SVC/IVC, ductal arch, aortic arch appear normal. The 4 chamber remains suboptimal. - A transvaginal ultrasound was performed. The cervix appears long and closed, measuring 2.9 cm. Plan: growth at 28 weeks is scheduled due to chronic hypertension and BMI >40. Views of the 4 chamber will also be obtained. Misty Anderson MD Electronically Signed Final Report 04/10/2025 08:37 am Reignaldo Grey CN IMG OB US PROCEDURES Final Re sult * Trichomonas vaginalis antigen (03/23/2025 12:18 PM EDT) Pathologist [facility] Trichomonas vaginalis Negative Negative 03/23/2025 7:39 PM EDT [facility] Swab Vaginal structure / Unknown Non-blood Collection / Unknown 03/23/2025 12:18 PM EDT 03/23/2025 12:18 PM EDT Dottie Martinez [facility] MICROBIOLOGY - GENERAL SILVIANO HAMM Final Result [facility] [address] [place] [address], [place] [phone] * Chlamydia trachomatis and Neisseria gonorrhoeae molecular study (03/23/2025 12:18 PM EDT) Neisseria gonorrhoeae PCR Negative Negative LAB MOLECULAR DIAGNOSTICS METHOD 03/24/2025 9:31 AM EDT [facility] Chlamydia trachomatis PCR Negative Negative LAB MOLECULAR DIAGNOSTICS METHOD 03/24/2025 9:31 AM EDT [facility] Swab Cervix uteri structure / Unknown 03/23/2025 12:18 PM EDT 03/23/2025 12:18 PM EDT Dottie HERRERA LAB MICROBIOLOGY - GENERAL ORDE RABLES Final Result Performing Organization Address [facility]/ZIP Co de Phone Number [facility] [address] [place] [address], [place] [phone] * (ABNORMAL) Wet prep, genital (03/23/2025 12:18 PM EDT) Clue Cells, Wet Prep Positive(A) Negative 03/23/2025 7:19 PM EDT [facility] Yeast, Wet Prep Positive(A) Negative 03/23/2025 7:19 PM EDT [facility] Trichomonas, Wet Prep Indeterminate Negative 03/23/2025 7:19 PM EDT [facility] Comment:Refer to Trichomonas antigen. Swab Vaginal structure / Unknown Non-blood Collection / Unknown 03/23/2025 12:18 PM EDT 03/23/2025 12:18 PM EDT Dottie Martinez [facility] MICROBIOLOGY - GENERAL ORDE RABLES Final Result Performing Organization Address [facility] Co de Phone Number [facility] [address] [place] [address], [place] [phone] * US OB Detailed Single or First Gestation (03/23/2025 11:13 AM EDT) Anatomical Region Laterality Modality Body Ultrasound 03/23/2025 9:44 AM EDT Narrative 03/24/2025 3:55 PM EDT OBSTETRICS REPORT (Signed Final 03/24/2025 03:55 pm) PATIENT INFO: ID #: [id number] : [birth year] (35 yrs)(F) Name: LISS Visit Date: 03/23/2025 09:44 am KIRTI PERFORMED BY: Attending: Joyce Kapadia MD Performed By: Tushar Mittal [facility] Referred By: Valerie Puri MD Ref. Address: [address] [place] [address] Location: [facility]) SERVICE(S) PROVIDED: US Level II complete (Targeted OB) 03813 OB Transvaginal ultrasound 61891 INDICATIONS: Advanced maternal age in multigravida, O09.522 second trimester Pre-existing essential hypertension O10.012 complicating , second trimester Cervical shortening, second trimester O26.872 Marginal insertion of the umbilical cord O43.192 affecting management of the mother, 2nd trimester Obesity complicating , 2nd O99.212 trimester Morbid obesity E66.01 Encounter for screening for Z36.3 malformations 21 weeks gestation of Z3A.21 TECHNIQUE/SCAN QUALITY: Technique: Transabdominal Scan Satisfactory Quality: OB HISTORY: : 1 VITAL SIGNS: Weight (lb) Height BMI 307 5'8 46.67 EVALUATION: Number Of Fetuses: 1 Preg. Location: Intrauterine Cardiac Activity: Observed Presentation: Breech Placenta Location: Anterior Appearance: Grade 1 Relation to CVX: No previa Cord Insertion: Visualized Amniotic Fluid DULCE MARIA FV: Within Normal Limits Comment: A >2 x 2 cm pocket of fluid is noted. BIOMETRY: BPD: 50.2 mm G.Age: 21w 1d 45 % HC: 188.1 mm G.Age: 21w 1d 32 % AC: 163.4 mm G.Age: 21w 3d 47 % FL: 34.5 mm G.Age: 20w 6d 26 % HUM: 31.7 mm G.Age: 20w 4d 29 % CER: 21.6 mm G.Age: 20w 4d 31 % NB: 7.27 mm 51 % > 1 MoM LV: 7.1 mm CM: 4.1 mm OOD: 34 mm G.Age: 20w 3d 45 % CI: 72.12 % 70 - 86 FL/HC: 18.3 % 15.9 - 20.3 HC/AC: 1.15 1.06 - 1.25 FL/BPD: 68.7 % FL/AC: 21.1 % 20 - 24 Est. FW: 403 gm 0 lb 14 oz 37 % GESTATIONAL AGE: LMP: 22w 1d Date: 10/19/24 KITTY: 07/26/25 U/S Today: 21w 1d KITTY: 08/02/25 Best: 21w 2d Det. By: Anil Elias 1st KITTY: 08/01/25 (01/12/25) DETAILED ANATOMY: Head / Neck Cranial Vault: Normal appearance Cavum Septi Pellucidi: Normal appearance Parenchyma: Normal appearance R. Lat. Ventricle: Normal appearance L. Lat. Ventricle: Normal appearance Corpus Callosum: Not visualized Midline Falx: Normal appearance R. Choroid Plexus: Normal appearance L. Choroid Plexus.: Normal appearance Cerebellum: Normal appearance CCisterna Magna: Normal appearance Neck: Suboptimal views Face Face Profile: Suboptimal views Nasal Bone: Normal appearance Coronal Face: Normal appearance Lips: Normal appearance Nose: Normal appearance Lenses: Normal appearance Orbits: Normal appearance Palate: Not vizualized Heart Cardiac Activity: Normal appearance Cardiac Rhythm: Normal appearance 4 Chamber View: Suboptimal views R. Outflow Tract: Suboptimal views L. Outflow Tract: Suboptimal views Interventr. Septum: Suboptimal views 3 Vessel View: Suboptimal views 3V Trachea View: Suboptimal views Cardiac Situs: Normal appearance Aortic Arch: Suboptimal views SVC: Suboptimal views IVC: Suboptimal views Ductal Arch: Suboptimal views Crossing G. Ves.: Suboptimal views Thorax Lungs: Suboptimal views Cardiac [place]: Suboptimal views Diaphragm: Normal appearance Thoracic Contour: Normal appearance Abdomen Situs: Normal appearance Stomach: Normal appearance Bowel: Normal appearance Liver: Normal appearance Abdominal Wall: Normal appearance Urinary Bladder: Normal appearance R. Kidney: Suboptimal views L. Kidney: Suboptimal views R. Renal Artery: Normal appearance L. Renal Artery: Normal appearance Umbilical Cord: Normal Appearance UC Vessel Num.: Normal 3VC Cord Insertion: Normal appearance Spine Cervical: Normal appearance Thoracic: Normal appearance Lumbar: Normal appearance Sacral: Normal appearance Shape / Curvature: Normal appearance Over. Soft Tissue: Normal appearance Vertebral Body: Normal appearance Extremities R. Humerus: Normal appearance L. Humerus: Normal appearance R. Forearm: Normal appearance L. Forearm: Normal appearance R. Hand: Normal appearance L. Hand: Normal appearance R. Femur: Normal appearance L. Femur: Normal appearance R. Lower Leg: Normal appearance L. Lower Leg: Normal appearance R. Foot: Normal appearance L. Foot: Normal appearance Other Genitalia: Female CERVIX UTERUS ADNEXA: Cervix Length: 2.2 cm. See Comments Below Right Ovary Size(cm) 3.31 x 2.35 Normal in size and appearance. It is found between the uterus and the pelvic sidewall. Left Ovary Size(cm) 3.09 x 3.55 x 2.5 Vol(ml): 14.36 Normal in size and appearance. It is found between the uterus and the pelvic sidewall. COMMENTS: Ms. Cotto is being seen for a detailed ultrasound for a BMI of 46 and advanced maternal age. - Her medical history is significant for chronic hypertension. She takes 50mg Labetalol PO daily and 162 mg aspirin PO daily. - She had cell free DNA screening. The results are low risk for all conditions assessed. - Ms. Cotto was dated by LMP. She reports that her cycles are irregular. - Ultrasound findings: The biometry remains consistent with her first trimester ultrasound. Given that her mentrual cycles were irregular and has consistently measured 6 day behind, it is recommended using ultrasound dates with an EDC of 08/01/25. Several views as noted nikunj were limited and not completed. - The cervix was assessed for risk of and placental location with vaginal ultrasound. The cervix is short measuring 2.2cm. The placenta is anterior and is not low lying nor a previa. Marginal cord insertion was seen on today's ultrasound. This can be associated with growth restriction. The placenta and cord insertion are not low- lying and there is no concern for vasa previa. - Dr. Kapadia discussed the ultrasound findings with the patient during the exam . - Counseling I reviewed the ultrasound findings with the patient, and we discussed that the finding of a short cervix is associated with a significantly increased risk of delivery. We discussed that infants born prematurely are at increased risk of mortality and morbidity. These risks include respiratory distress, necrotizing enterocolitis, intraventricular hemorrhage, periventricular leukomalacia, sepsis, and prolonged NICU stay. These complications are associated with younger gestational age at delivery. We discussed that progesterone supplementation is recommended for the prevention of secondary to the ultrasound finding of a short cervix. We also discussed the role of transvaginal ultrasound in assessing cervical length and the benefit of cervical cerclage if the cervix becomes shorter. I explained to her why I was sending her to primary OB for further evaluation to ensure she was not dilated, not reynaldo, and did not have cervicitis. I discussed the findings with her machine ceramic coater, Dottie Martinez, who evaluated her, informed me that her cervix was closed, and that she would prescribe her the recommended progesterone. Plan: She has been scheduled to return in 1 week to follow up cervical length and to complete the detailed ultrasound. Vaginal progesterone 200 mg vaginally at night until 36 weeks of gestation. Serial growth ultrasounds are recommended for CHTN. Joyce Kapadia MD Electronically Signed Final Report 03/24/2025 03:55 pm Procedure Note Joyce Kapadia MD - 03/24/2025 OBSTETRICS REPORT (Signed Final 03/24/2025 03:55 pm) PATIENT INFO: ID #: [id number] : [birth year] (35 yrs)(F) Name: LISS Visit Date: 03/23/2025 09:44 am KIRTI PERFORMED BY: Attending: Joyce Kapadia MD Performed By: Tushar Mittal RDMS Referred By: Valerie Puri MD Ref. Address: [address] [place] [id number] Location: [facility]) SERVICE(S) PROVIDED: US Level II complete (Targeted OB) 25509 OB Transvaginal ultrasound 43063 INDICATIONS: Advanced maternal age in multigravida, O09.522 second trimester Pre-existing essential hypertension O10.012 complicating , second trimester Cervical shortening, second trimester O26.872 Marginal insertion of the umbilical cord O43.192 affecting management of the mother, 2nd trimester Obesity complicating , 2nd O99.212 trimester Morbid obesity E66.01 Encounter for screening for Z36.3 malformations 21 weeks gestation of Z3A.21 TECHNIQUE/SCAN QUALITY: Technique: Transabdominal Scan Satisfactory Quality: OB HISTORY: : 1 VITAL SIGNS: Weight (lb) Height BMI 307 5'8 46.67 EVALUATION: Number Of Fetuses: 1 Preg. Location: Intrauterine Cardiac Activity: Observed Presentation: Breech Placenta Location: Anterior Appearance: Grade 1 Relation to CVX: No previa Cord Insertion: Visualized Amniotic Fluid DULCE MARIA FV: Within Normal Limits Comment: A >2 x 2 cm pocket of fluid is noted. BIOMETRY: BPD: 50.2 mm G.Age: 21w 1d 45 % HC: 188.1 mm G.Age: 21w 1d 32 % AC: 163.4 mm G.Age: 21w 3d 47 % FL: 34.5 mm G.Age: 20w 6d 26 % HUM: 31.7 mm G.Age: 20w 4d 29 % CER: 21.6 mm G.Age: 20w 4d 31 % NB: 7.27 mm 51 % > 1 MoM LV: 7.1 mm CM: 4.1 mm OOD: 34 mm G.Age: 20w 3d 45 % CI: 72.12 % 70 - 86 FL/HC: 18.3 % 15.9 - 20.3 HC/AC: 1.15 1.06 - 1.25 FL/BPD: 68.7 % FL/AC: 21.1 % 20 - 24 Est. FW: 403 gm 0 lb 14 oz 37 % GESTATIONAL AGE: LMP: 22w 1d Date: 10/19/24 KITTY: 07/26/25 U/S Today: 21w 1d KITTY: 08/02/25 Best: 21w 2d Det. By: Anil Elias 1st KITTY: 08/01/25 (01/12/25) DETAILED ANATOMY: Head / Neck Cranial Vault: Normal appearance Cavum Septi Pellucidi: Normal appearance Parenchyma: Normal appearance R. Lat. Ventricle: Normal appearance L. Lat. Ventricle: Normal appearance Corpus Callosum: Not visualized Midline Falx: Normal appearance R. Choroid Plexus: Normal appearance L. Choroid Plexus.: Normal appearance Cerebellum: Normal appearance CCisterna Magna: Normal appearance Neck: Suboptimal views Face Face Profile: Suboptimal views Nasal Bone: Normal appearance Coronal Face: Normal appearance Lips: Normal appearance Nose: Normal appearance Lenses: Normal appearance Orbits: Normal appearance Palate: Not vizualized Heart Cardiac Activity: Normal appearance Cardiac Rhythm: Normal appearance 4 Chamber View: Suboptimal views R. Outflow Tract: Suboptimal views L. Outflow Tract: Suboptimal views Interventr. Septum: Suboptimal views 3 Vessel View: Suboptimal views 3V Trachea View: Suboptimal views Cardiac Situs: Normal appearance Aortic Arch: Suboptimal views SVC: Suboptimal views IVC: Suboptimal views Ductal Arch: Suboptimal views Crossing G. Ves.: Suboptimal views Thorax Lungs: Suboptimal views Cardiac [place]: Suboptimal views Diaphragm: Normal appearance Thoracic Contour: Normal appearance Abdomen Situs: Normal appearance Stomach: Normal appearance Bowel: Normal appearance Liver: Normal appearance Abdominal Wall: Normal appearance Urinary Bladder: Normal appearance R. Kidney: Suboptimal views L. Kidney: Suboptimal views R. Renal Artery: Normal appearance L. Renal Artery: Normal appearance Umbilical Cord: Normal Appearance UC Vessel Num.: Normal 3VC Cord Insertion: Normal appearance Spine Cervical: Normal appearance Thoracic: Normal appearance Lumbar: Normal appearance Sacral: Normal appearance Shape / Curvature: Normal appearance Over. Soft Tissue: Normal appearance Vertebral Body: Normal appearance Extremities R. Humerus: Normal appearance L. Humerus: Normal appearance R. Forearm: Normal appearance L. Forearm: Normal appearance R. Hand: Normal appearance L. Hand: Normal appearance R. Femur: Normal appearance L. Femur: Normal appearance R. Lower Leg: Normal appearance L. Lower Leg: Normal appearance R. Foot: Normal appearance L. Foot: Normal appearance Other Genitalia: Female CERVIX UTERUS ADNEXA: Cervix Length: 2.2 cm. See Comments Below Right Ovary Size(cm) 3.31 x 2.35 Normal in size and appearance. It is found between the uterus and the pelvic sidewall. Left Ovary Size(cm) 3.09 x 3.55 x 2.5 Vol(ml): 14.36 Normal in size and appearance. It is found between the uterus and the pelvic sidewall. COMMENTS: Ms. Cotto is being seen for a detailed ultrasound for a BMI of 46 and advanced maternal age. - Her medical history is significant for chronic hypertension. She takes 50mg Labetalol PO daily and 162 mg aspirin PO daily. - She had cell free DNA screening. The results are low risk for all conditions assessed. - Ms. Cotto was dated by LMP. She reports that her cycles are irregular. - Ultrasound findings: The biometry remains consistent with her first trimester ultrasound. Given that her mentrual cycles were irregular and has consistently measured 6 day behind, it is recommended using ultrasound dates with an EDC of 08/01/25. Several views as noted nikunj were limited and not completed. - The cervix was assessed for risk of and placental location with vaginal ultrasound. The cervix is short measuring 2.2cm. The placenta is anterior and is not low lying nor a previa. Marginal cord insertion was seen on today's ultrasound. This can be associated with growth restriction. The placenta and cord insertion are not low- lying and there is no concern for vasa previa. - Dr. Kapadia discussed the ultrasound findings with the patient during the exam . - Counseling I reviewed the ultrasound findings with the patient, and we discussed that the finding of a short cervix is associated with a significantly increased risk of delivery. We discussed that infants born prematurely are at increased risk of mortality and morbidity. These risks include respiratory distress, necrotizing enterocolitis, intraventricular hemorrhage, periventricular leukomalacia, sepsis, and prolonged NICU stay. These complications are associated with younger gestational age at delivery. We discussed that progesterone supplementation is recommended for the prevention of secondary to the ultrasound finding of a short cervix. We also discussed the role of transvaginal ultrasound in assessing cervical length and the benefit of cervical cerclage if the cervix becomes shorter. I explained to her why I was sending her to primary OB for further evaluation to ensure she was not dilated, not reynaldo, and did not have cervicitis. I discussed the findings with her machine ceramic coater, Dottie Martinez, who evaluated her, informed me that her cervix was closed, and that she would prescribe her the recommended progesterone. Plan: She has been scheduled to return in 1 week to follow up cervical length and to complete the detailed ultrasound. Vaginal progesterone 200 mg vaginally at night until 36 weeks of gestation. Serial growth ultrasounds are recommended for CHTN. Joyce Kapadia MD Electronically Signed Final Report 03/24/2025 03:55 pm us Valerie Puri MD IMG OB US PROCEDURES Final Result * Alpha fetoprotein, maternal (03/12/2025 1:27 PM EDT) Physician Phone Number Not Provided 03/16/2025 12:08 PM EDT [facility] Notes to Laboratory Not Provided 03/16/2025 12:08 PM EDT [facility] Weight (lbs) 303 03/16/2025 12:08 PM EDT [facility] Expected Due Date (MM/DD/YYYY) [id number] 03/16/2025 12:08 PM EDT [facility] Expected Due Date Based On? LMP 03/16/2025 12:08 PM EDT [facility] Twin ? No - Singletons 03/16/2025 12:08 PM EDT [facility] Race Black 03/16/2025 12:08 PM EDT [facility] Insulin Dependent Diabetic? No 03/16/2025 12:08 PM EDT [facility] Does Patient Currently Smoke Cigarettes? No 03/16/2025 12:08 PM EDT [facility] Repeat Screen for Current ? No 03/16/2025 12:08 PM EDT [facility] Previous w/ Neural Tube Defect? No 03/16/2025 12:08 PM EDT [facility] IVF ? No 03/16/2025 12:08 PM EDT [facility] Screen Result Negative Negative 03/16/2025 12:08 PM EDT [facility] Age at KITTY (years) 35 03/16/2025 12:08 PM EDT [facility] Gestational Age (weeks) 19 03/16/2025 12:08 PM EDT [facility] Gestational Age (days) 5 03/16/2025 12:08 PM EDT [facility] Weight (lbs) 303 03/16/2025 12:08 PM EDT [facility] Multiple Gestation Single 03/16/2025 12:08 PM EDT [facility] Ethnic Origin Black 03/16/2025 12:08 PM EDT [facility] Insulin Dependent Diabetes None 03/16/2025 12:08 PM EDT [facility] Smoker? No 03/16/2025 12:08 PM EDT [facility] AFP 37.0 ng/mL 03/16/2025 12:08 PM EDT [facility] AFP MOM 0.82 03/16/2025 12:08 PM EDT [facility] Gestational Age Method KITTY 03/16/2025 12:08 PM EDT [facility] Comment:The gestational age is based on an KITTY of 08/01/25. Interpretation SeeBelow 03/16/2025 12:08 PM EDT [facility] Comment: This is the initial sample received at [facility] for MSAFP SCREEN NEGATIVE FOR NEURAL TUBE DEFECTS. Additional Test Information: The MSAFP does not provide a risk estimate or a diagnosis. Incorrect or missing information may considerably alter results. A positive report is indicated when the AFP MOM is greater than or equal to 2.20. Maternal weights less than 65 lbs or greater than 440 lbs are truncated and the AFP MOM is not adjusted beyond those limits. Assessment is adjusted for insulin-dependent diabetic status, weight, race and smoking. Previous pregnancies affected with a neural tube defect may significantly affect results. Test performed at [facility], [address] [place] [address] Cecelia Huerta MD, PhD - Spinning Machine Operator Blood Venous blood specimen / Unknown Venipuncture / Unknown 03/12/2025 1:27 PM EDT 03/12/2025 1:27 PM EDT Aixa Herr [facility] BLOOD ORDERABLES Final Res ult [facility] [address] [place] [address] * Hepatitis C antibody (01/06/2025 12:27 PM EST) [facility] Hepatitis C Antibody Negative Negative LAB CHEMISTRY METHOD 01/06/2025 6:04 PM EST [facility] Blood Venous blood specimen / Unknown Venipuncture / Unknown 01/06/2025 12:27 PM EST 01/06/2025 12:27 PM EST us Valerie Puri MD LAB BLOOD ORDERABLES Final Result Performing Organization Address City/[facility]/ZIP Co de Phone Number [facility] [address] [place] [address], [place] [phone] * HIV 1,2 antibody, p24 antigen with reflex to differentiation (01/06/2025 12:27 PM EST) Pathologist [facility] HIV Combo AB/AG Negative Negative LAB CHEMISTRY METHOD 01/06/2025 6:04 PM EST [facility] Blood Venous blood specimen / Unknown Venipuncture / Unknown 01/06/2025 12:27 PM EST 01/06/2025 12:27 PM EST Narrative [facility] - 01/06/2025 6:04 PM EST This assay is a 4th generation assay allowing for earlier detection of HIV infection by detecting the presence of the HIV-1 p24 antigen as well as the traditional antibodies to HIV type 1 (including group O) and type 2. Use of a 4th generation assay is the current CDC recommendation for HIV screening. us Valerie Puri MD LAB BLOOD ORDERABLES Final Result Performing Organization Address [facility] Co de Phone Number [facility] [address] [place] [address], [place] [phone] * Creatinine (01/06/2025 12:27 PM EST) Pathologist [facility] Creatinine 0.85 0.50 - 1.10 mg/dL LAB CHEMISTRY METHOD 01/06/2025 5:13 PM EST [facility] eGFR 91 >=60 mL/min/1. 73m2 LAB CHEMISTRY METHOD 01/06/2025 5:13 PM EST [facility] Comment:Calculation based on the Chronic Kidney Disease Epidemiology Collaboration (CKD-EPI) equation refit without adjustment for race. Blood Venous blood specimen / Unknown Venipuncture / Unknown 01/06/2025 12:27 PM EST 01/06/2025 12:27 PM EST Valerie Puri MD LAB BLOOD ORDERABLES Final Result [facility] [address] [place] [address], * Cervical Cancer Screening: HPV (12/27/2020) [facility] Cervical Cancer Screening: HPV negative abstracted Historical Provider HEALTH MAINTENANCE Final Result from Last 3 Months or Most Recently Relevant to Health Maintenance Insurance [address] [place] [address] [employer] Care Teams [employer] Relationship Specialty Start Date End Date Gregg Keller MD [address] [place] [id number] PCP - General Internal Medicine 05/07/25
--- OUTSIDE RECORDS SUMMARY | 2025-06-02 09:26 | XMS_ITS | Patient Health Record ---
Author Organization [facility] Address [address] [place] [address] Care Team Providers Care Meter Inspector Name Role Phone Irvin ROLON, Cat Primary Care Provider Unavail able RogerCecilia weeks Unavailable [phone] Reason For Referral No Information Medications Medication SIG (Take, Route, Frequency, Duration) Notes Start Date End Date Status LFT . . . .; Duration: . 06/08/2020 Active Social History Tobacco Use: Social History Observation Description Date Details (start date - stop date) Current Smoker NA - NA Tobacco Use/Smoking Question Answer Notes Are you a: current smoker How often do you smoke cigarettes? some days, bu t not every day Alcohol Screen Question Answer Notes Did you have a drink containing alcohol in the p ast year? Yes Points 0 Interpretation Negative Tobacco use other than smoking: Question Answer Notes Are you an other tobacco user? No Plan Of Treatment Pending Test Test Name Order Date *Liver Function Test (LFT) 12/13/2018 Insurance Providers Payer Name Payer Address Payer Phone Subscriber Number Group Number Insured Name Patient Relationship to Insured Coverage Start Date Coverage End Date [facility] [address] [address] [place] [address] [id number] Liss Hernandez Self - patient is the insured Medical (General) History Surgical History Surgery Date(Month/Year)
== END 2025-06-02 11:04 | disposition home or self-care (01) ==
PROVIDERS: PCP Internal Medicine; Visit Provider Internal Medicine
DX: Z00.00 Encounter for general adult medical examination without abnormal findings (principal); E66.01 Morbid (severe) obesity due to excess calories; Z68.42 Body mass index [BMI] 45.0-49.9, adult; I10 Essential (primary) hypertension; D50.0 Iron deficiency anemia secondary to blood loss (chronic); Z34.90 Encounter for supervision of normal pregnancy, unspecified, unspecified trimester